=== PATIENT | female | born 1985 | race Caucasian/White ===

== ENCOUNTER 2020-03-24 00:27 | Inpatient (IN) ==
--- NOTE | 2020-03-24 00:41 | Emergency Department Note ---
Impression & Plan Froy, Mood disorder, Sleep deprivation ED Provider Note NAME: ISMAEL VALENZUELA AGE: 34 SEX: F ARRIVES VIA: Walk-In INFORMANT: [Patient][, patient's sister who is at the bedside] ED PROVIDER(S): Lovely Barajas DO CHIEF COMPLAINT: Manic PLAN: Disposition: Admitted to [facility]. voluntarily Condition: Fair MEDICAL DECISION MAKING: This is a 34-year-old female patient who presents to the emergency department sleep deprived and acutely manic. Patient's family has been concerned for over the past 1 month as she has been exhibiting some signs of acute psychosis and froy. Patient has also not been sleeping. They became more concerned tonight when she explained to them that she needed to save someone from killing themselves and they believe that that person was actually her. The patient was fully evaluated here in the emergency department and had laboratory studies done and was felt to be medically cleared. She was given a dose of Ativan to help with her anxiety. She was evaluated by the ED psychiatric residential case manager. She was willing to admit herself voluntarily and was accepted to 3 S. The patient was given an oral dose of Haldol prior to going upstairs. Triage Nursing notes reviewed and agree them. [Additional history obtained from] the patient's sister who was at the bedside [Prior medical records reviewed] Vital Signs: reviewed and remarkable for Intermittent tachycardia and hypertension Differential diagnosis: Mood disorder, thought disorder, suicidal ideation, sleep deprivation ER treatment provided: Oral Ativan Oral Haldol Laboratory studies: [See below] HPI: 34/F arrives for evaluation of suicidal thoughts. This is a 34-year-old female patient who presents to the emergency department in a sleep deprived state and acutely manic. The patient has been exhibiting signs of acute psychosis and froy. There have been some obsessive and compulsive tendencies. She had called 911 stating that she was concerned about a friend being suicidal but in reality it seems that she may have been talking about herself. She states that she is doing everything that she cannot kill herself. She does have a history of depression. She does admit to significant sleep deprivation which makes everything worse. She does admit that she has been talking to Sima on her phone quite a bit. She describes being on a vision quest with her dog. According to her sister, she has been erratically spending money. She bought 60 plants for her porch to protect her from the coronavirus. ROS: See above HPI for pertinent positives & negatives. A total of [10] systems reviewed and were otherwise negative. PAST MEDICAL HISTORY:Anxiety and depression PAST SURGICAL HISTORY:[See Below] FAMILY HISTORY:[See Below] SOCIAL HISTORY:She lives alone and works at [employer]; she does drink alcohol occasionally HOME MEDICATIONS:See list ALLERGIES:None VITALS:[See Below] PHYSICAL EXAMINATION: HEENT: Head - normocephalic and atraumatic Pupils are equal, round, and reactive to light. Extraocular eye muscles are intact, and sclera are anicteric. Nose - moist nasal mucosa without discharge. Mouth - moist buccal mucosa. Oropharynx is nonerythematous and there is no tonsillar exudate or edema noted. Neck: Supple; no cervical lymphadenopathy Heart: Regular rate and rhythm. There is a normal S1 and S2 with no murmurs, clicks, or gallops appreciated. Lungs: Clear to auscultation bilaterally with no wheezes, rales, or rhonchi. Abdomen: Soft, completely nontender, nondistended, with good bowel sounds. There are no palpable pulsatile masses or hepatosplenomegaly. There is no guarding, rigidity, or rebound noted. Extremities: No evidence of cyanosis, clubbing, or edema. There are easily palpable peripheral pulses. Skin: warm and dry with good turgor and no rashes. Psych: The patient is manic. She has a very tangential thought process. She speaks about being on a vision quest. She does laugh inappropriately at times b ut makes good eye contact. ED COURSE: Times/Reassessments: 0045: The patient was evaluated in room 8. A complete history and physical was performed. Laboratory studies were drawn as above 0240: The patient was felt to be medically cleared. She was given sublingual Ativan for her anxiety. This did seem to only helped slightly with her increasing agitation. She was willing to admit herself voluntarily for inpatient psychiatric care. 0300: I reevaluated the patient at this time and tried to de-escalate her some as she was becoming more tearful and anxious. Patient was requesting to rewrite the paperwork with regards to voluntary admission to an inpatient psychiatric facility. Patient was finally willing to sign herself in voluntarily. She did take 5 mg of oral Haldol. She will be admitted to [facility]. 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 Beliefs That Will Affect Care: None Feels Safe at Home: Yes Smoking Status: Never smoker Allergies Allergies Allergy/AdvReac Type Severity Reaction Status Date / Time No Known Allergies Allergy Verified 03/24/20 02:45 Home Meds Home Medications Medication Instructions Recorded Confirmed escitalopram oxalate 20 mg PO DAILY 02/13/20 03/24/20 norgestimate-ethinyl estradiol 1 tab PO DAILY 02/13/20 03/24/20 [Tri Femynor] Results & Data (ED) Vital Signs Vital Signs - 24 hr 03/24/20 00:28 03/24/20 02:20 Temperature 37.1 C Temperature Source Oral Pulse Rate 84 Pulse Rate [Finger] 92 H Respiratory Rate 18 18 Respiratory Effort / Characteristics Non-Labored Spontaneous Non-Labored Spontaneous Respiratory Depth Normal Normal Respiratory Pattern Regular Blood Pressure 133/98 Blood Pressure [Right Arm] 137/92 Blood Pressure Mean 109 Blood Pressure Mean [Right Arm] 107 Blood Pressure Position Sitting Pulse Oximetry 96 95 Oxygen Delivery Method Room Air Room Air Sepsis Recent Fever Within 48 Hours No Sepsis New/Unexplained Change in Mental Status No Sepsis Action Taken by Nursing No Action Required Laboratory Data Result diagrams: 03/24/20 01:44 03/24/20 01:44 Lab Results 03/24/20 03/24/20 03/24/20 Range/Units 01:44 01:44 01:44 WBC 9.44 (4.8-10.8) K/uL RBC 4.51 (4.2-5.4) M/uL Hgb 13.5 (12.0-16.0) g/dL Hct 40.7 (37-47) % MCV 90.2 (80-100) fL MCH 29.9 (25-34) pg MCHC 33.2 (32-36) g/dL RDW Std Deviation 43.7 (36.4-46.3) fL RDW Coeff of Nick 13.3 (11.5-14.5) % Plt Count 356 (130-400) K/uL MPV 9.5 (7.4-10.4) fL Immature Gran % (Auto) 0.2 % Neut % (Auto) 58.1 % Lymph % (Auto) 31.1 % Harper % (Auto) 9.2 % Eos % (Auto) 1.2 % Baso % (Auto) 0.2 % Neut # (Auto) 5.48 (1.4-6.5) K/uL Lymph # (Auto) 2.94 (1.2-3.4) K/uL Harper # (Auto) 0.87 H (0.11-0.59) K/uL Eos # (Auto) 0.11 (0-0.5) K/uL Baso # (Auto) 0.02 (0-0.2) K/uL Immature Gran # (Auto) 0.02 (0.00-0.02) K/uL Sodium 142 (136-145) mmol/L Potassium 3.6 (3.5-5.1) mmol/L Chloride 107 (98-107) mmol/L Carbon Dioxide 27 (21-32) mmol/L Anion Gap 8.0 (3-11) BUN 11 (7-18) mg/dl Creatinine 0.87 (0.6-1.2) mg/dl Est Cr Clr Drug Dosing Not Reportable Est GFR ( Amer) 102.2 Est GFR (Non-Af Amer) 88.1 BUN/Creatinine Ratio 12.8 (10-20) Glucose 118 H (70-99) mg/dl Calcium 8.7 (8.5-10.1) mg/dl Total Bilirubin 0.3 (0.2-1) mg/dl AST 22 (15-37) U/L ALT 45 (12-78) U/L Alkaline Phosphatase 54 (45-117) U/L Total Protein 7.7 (6.4-8.2) gm/dl Albumin 3.4 (3.4-5.0) gm/dl Globulin 4.3 H (2.5-4.0) gm/dl Albumin/Globulin Ratio 0.8 L (0.9-2) TSH 2.570 (0.300-4.500) uIu/ml Urine Color Urine Appearance (Clear) Urine pH (4.5-7.5) Ur Specific Paia (1.000-1.030) Urine Protein (Negative) Urine Glucose (UA) (Negative) Urine Ketones (Negative) Urine Blood (Negative) Urine Nitrite (Negative) Urine Bilirubin (Negative) Urine Urobilinogen (Negative) Ur Leukocyte Esterase (Negative) Urine RBC (0-4) /hpf Urine WBC (0-5) /hpf Ur Epithelial Cells (0-5) /lpf Urine Bacteria (Negative) Urine Mucus (None Prsent) Urine Test (Negative) Salicylates < 1.7 L (2.8-20) mg/dl Urine Opiates Screen (Neg) Ur Methadone, Qual (Neg) Acetaminophen < 2 L (10-30) ug/ml Urine Barbiturates (Neg) Ur Phencyclidine (PCP) (Neg) U Amphetamin/Meth Scrn (Neg) MDMA (Ecstasy) Screen (Neg) U Benzodiazepines Scrn (Neg) Ur Cocaine Metabolite (Neg) U Marijuana (THC) Screen (Neg) Ethyl Alcohol mg/dL (0-3) mg/dl 03/24/20 03/24/20 03/24/20 Range/Units 01:44 02:24 02:24 WBC (4.8-10.8) K/uL RBC (4.2-5.4) M/uL Hgb (12.0-16.0) g/dL Hct (37-47) % MCV (80-100) fL MCH (25-34) pg MCHC (32-36) g/dL RDW Std Deviation (36.4-46.3) fL RDW Coeff of Nick (11.5-14.5) % Plt Count (130-400) K/uL MPV (7.4-10.4) fL Immature Gran % (Auto) % Neut % (Auto) % Lymph % (Auto) % Harper % (Auto) % Eos % (Auto) % Baso % (Auto) % Neut # (Auto) (1.4-6.5) K/uL Lymph # (Auto) (1.2-3.4) K/uL Harper # (Auto) (0.11-0.59) K/uL Eos # (Auto) (0-0.5) K/uL Baso # (Auto) (0-0.2) K/uL Immature Gran # (Auto) (0.00-0.02) K/uL Sodium (136-145) mmol/L Potassium (3.5-5.1) mmol/L Chloride (98-107) mmol/L Carbon Dioxide (21-32) mmol/L Anion Gap (3-11) BUN (7-18) mg/dl Creatinine (0.6-1.2) mg/dl Est Cr Clr Drug Dosing Est GFR ( Amer) Est GFR (Non-Af Amer) BUN/Creatinine Ratio (10-20) Glucose (70-99) mg/dl Calcium (8.5-10.1) mg/dl Total Bilirubin (0.2-1) mg/dl AST (15-37) U/L ALT (12-78) U/L Alkaline Phosphatase (45-117) U/L Total Protein (6.4-8.2) gm/dl Albumin (3.4-5.0) gm/dl Globulin (2.5-4.0) gm/dl Albumin/Globulin Ratio (0.9-2) TSH (0.300-4.500) uIu/ml Urine Color Urine Appearance (Clear) Urine pH (4.5-7.5) Ur Specific Paia (1.000-1.030) Urine Protein (Negative) Urine Glucose (UA) (Negative) Urine Ketones (Negative) Urine Blood (Negative) Urine Nitrite (Negative) Urine Bilirubin (Negative) Urine Urobilinogen (Negative) Ur Leukocyte Esterase (Negative) Urine RBC (0-4) /hpf Urine WBC (0-5) /hpf Ur Epithelial Cells (0-5) /lpf Urine Bacteria (Negative) Urine Mucus (None Prsent) Urine Test Negative (Negative) Salicylates (2.8-20) mg/dl Urine Opiates Screen Neg (Neg) Ur Methadone, Qual Neg (Neg) Acetaminophen (10-30) ug/ml Urine Barbiturates Neg (Neg) Ur Phencyclidine (PCP) Neg (Neg) U Amphetamin/Meth Scrn Neg (Neg) MDMA (Ecstasy) Screen Neg (Neg) U Benzodiazepines Scrn Neg (Neg) Ur Cocaine Metabolite Neg (Neg) U Marijuana (THC) Screen Neg (Neg) Ethyl Alcohol mg/dL < 3.0 (0-3) mg/dl 03/24/20 Range/Units 02:24 WBC (4.8-10.8) K/uL RBC (4.2-5.4) M/uL Hgb (12.0-16.0) g/dL Hct (37-47) % MCV (80-100) fL MCH (25-34) pg MCHC (32-36) g/dL RDW Std Deviation (36.4-46.3) fL RDW Coeff of Nick (11.5-14.5) % Plt Count (130-400) K/uL MPV (7.4-10.4) fL Immature Gran % (Auto) % Neut % (Auto) % Lymph % (Auto) % Harper % (Auto) % Eos % (Auto) % Baso % (Auto) % Neut # (Auto) (1.4-6.5) K/uL Lymph # (Auto) (1.2-3.4) K/uL Harper # (Auto) (0.11-0.59) K/uL Eos # (Auto) (0-0.5) K/uL Baso # (Auto) (0-0.2) K/uL Immature Gran # (Auto) (0.00-0.02) K/uL Sodium (136-145) mmol/L Potassium (3.5-5.1) mmol/L Chloride (98-107) mmol/L Carbon Dioxide (21-32) mmol/L Anion Gap (3-11) BUN (7-18) mg/dl Creatinine (0.6-1.2) mg/dl Est Cr Clr Drug Dosing Est GFR ( Amer) Est GFR (Non-Af Amer) BUN/Creatinine Ratio (10-20) Glucose (70-99) mg/dl Calcium (8.5-10.1) mg/dl Total Bilirubin (0.2-1) mg/dl AST (15-37) U/L ALT (12-78) U/L Alkaline Phosphatase (45-117) U/L Total Protein (6.4-8.2) gm/dl Albumin (3.4-5.0) gm/dl Globulin (2.5-4.0) gm/dl Albumin/Globulin Ratio (0.9-2) TSH (0.300-4.500) uIu/ml Urine Color Yellow Urine Appearance Cloudy A (Clear) Urine pH 6.5 (4.5-7.5) Ur Specific Paia <= 1.005 (1.000-1.030) Urine Protein Negative (Negative) Urine Glucose (UA) Negative (Negative) Urine Ketones Negative (Negative) Urine Blood 3+ H (Negative) Urine Nitrite Negative (Negative) Urine Bilirubin Negative (Negative) Urine Urobilinogen Negative (Negative) Ur Leukocyte Esterase Negative (Negative) Urine RBC 10-30 H (0-4) /hpf Urine WBC 10-30 H (0-5) /hpf Ur Epithelial Cells >30 H (0-5) /lpf Urine Bacteria 1+ H (Negative) Urine Mucus Present A (None Prsent) Urine Test (Negative) Salicylates (2.8-20) mg/dl Urine Opiates Screen (Neg) Ur Methadone, Qual (Neg) Acetaminophen (10-30) ug/ml Urine Barbiturates (Neg) Ur Phencyclidine (PCP) (Neg) U Amphetamin/Meth Scrn (Neg) MDMA (Ecstasy) Screen (Neg) U Benzodiazepines Scrn (Neg) Ur Cocaine Metabolite (Neg) U Marijuana (THC) Screen (Neg) Ethyl Alcohol mg/dL (0-3) mg/dl Administered Medications Acetaminophen (Tylenol) 650 mg PO Q4H PRN PRN Reason: Headache or Minor Fever Stop: 04/23/20 04:48 Last Admin: 03/24/20 14:28 Dose: 650 mg Documented by: [id number] Hydroxyzine HCl (Vistaril) 25 mg PO Q4H PRN PRN Reason: Anxiety Stop: 04/23/20 04:48 Last Admin: 03/24/20 15:47 Dose: 25 mg Documented by: [id number] Lorazepam (Ativan) 1 mg PO Q6H PRN PRN Reason: Anxiety Stop: 04/23/20 04:50 Last Admin: 03/24/20 12:59 Dose: 1 mg Documented by: [id number] Discontinued Medications Escitalopram Oxalate (Lexapro Tab) 10 mg PO QAM PONCHO Stop: 04/23/20 14:59 Last Admin: 03/24/20 15:16 Dose: 10 mg Documented by: [id number] Haloperidol Lactate (Haldol Lactate) 5 mg PO NOW STA Stop: 03/24/20 05:40 Last Admin: 03/24/20 05:58 Dose: 5 mg Documented by: [id number] Lorazepam (Ativan) 1 mg PO NOW STA Stop: 03/24/20 02:46 Last Admin: 03/24/20 02:50 Dose: 1 mg Documented by: [id number] Risperidone (Risperdal) 0.5 mg PO NOW STA Stop: 03/24/20 14:11 Last Admin: 03/24/20 14:32 Dose: 0.5 mg Documented by: [id number] Discharge Plan Visit Data *Final* Discharge Date/Time: 03/24/20 06:04 Chief Complaint: Mental Health Evaluation Stated Complaint: [facility] ED Provider: Lovely Barajas Discharge Problem: Froy, Mood disorder, Sleep deprivation Patient Disposition: Admitted As Inpatient Discharge Instructions Interventions: ED Discharge Assessment Last Done: 03/24/20 06:04
[2020-03-24 02:01] LABS: Basophils # (auto) 0.02 K/uL (0-0.2); Basophils % (auto) 0.2 %; Eosinophils # (auto) 0.11 K/uL (0-0.5); Eosinophils % (auto) 1.2 %; Hematocrit (blood only) 40.7 % (37-47); Hemoglobin 13.5 g/dL (12.0-16.0); Immature Granulocytes # (auto) 0.02 K/uL (0.00-0.02); Immature Granulocytes % (auto) 0.2 %; Lymphocytes # (auto) 2.94 K/uL (1.2-3.4); Lymphocytes % (auto) 31.1 %; Mean Corpuscular Hemoglobin 29.9 pg (25-34); Mean Corpuscular Hgb Conc 33.2 g/dL (32-36); Mean Corpuscular Volume 90.2 fL (80-100); Mean Platelet Volume 9.5 fL (7.4-10.4); Monocytes # (auto) 0.87 K/uL (0.11-0.59); Monocytes % (auto) 9.2 %; Neutrophils # (auto) 5.48 K/uL (1.4-6.5); Neutrophils % (auto) 58.1 %; Platelet Count 356 K/uL (130-400); RDW Coefficient of Variation 13.3 % (11.5-14.5); RDW Standard Deviation 43.7 fL (36.4-46.3); Red Blood Count 4.51 M/uL (4.2-5.4); White Blood Count 9.44 K/uL (4.8-10.8)
[2020-03-24 02:21] LABS: Alanine Aminotransferase 45 U/L (12-78); Albumin Level 3.4 gm/dl (3.4-5.0); Aspartate Aminotransferase 22 U/L (15-37); BUN Creatinine Ratio 12.8 (10-20); Blood Urea Nitrogen 11 mg/dl (7-18); Calcium 8.7 mg/dl (8.5-10.1); Carbon Dioxide 27 mmol/L (21-32); Chloride 107 mmol/L (98-107); Est GFR (African American) 102.2; Est GFR (Non-African American) 88.1; Glucose 118 mg/dl (70-99); Potassium 3.6 mmol/L (3.5-5.1); Sodium 142 mmol/L (136-145)
[2020-03-24 02:30] LABS: Acetaminophen < 2 ug/ml (10-30); Salicylate < 1.7 mg/dl (2.8-20)
[2020-03-24 02:31] LABS: Albumin Globulin Ratio 0.8 (0.9-2); Alkaline Phosphatase 54 U/L (45-117); Bilirubin,Total 0.3 mg/dl (0.2-1); Globulin 4.3 gm/dl (2.5-4.0); Total Protein 7.7 gm/dl (6.4-8.2)
[2020-03-24 02:33] LABS: Pregnancy Test, Urine Negative (Negative)
[2020-03-24 02:44] LABS: Appearance Urine Cloudy (Clear); Bilirubin Urine Negative (Negative); Blood Urine 3+ (Negative); Color Urine Yellow; Glucose Urine UA Negative (Negative); Ketones Urine Negative (Negative); Leukocyte Esterase Urine Negative (Negative); Nitrite Urine Negative (Negative); Protein Urine Negative (Negative); Specific Gravity Urine <= 1.005 (1.000-1.030); Urobilinogen Urine Negative (Negative); pH Urine 6.5 (4.5-7.5)
[2020-03-24 02:45] LABS: Epithelial Cell Urine >30 /lpf (0-5)
[2020-03-24] MEDS ORDERED: LORazepam 1 MG TAB PO STA (02:45)
[2020-03-24 02:46] LABS: Bacteria Urine 1+ (Negative); Mucus Urine Present (None Prsent)
[2020-03-24 02:58] LABS: Amphetamines+Metham, Urine Neg (Neg); Barbiturates, Urine Neg (Neg); Benzodiazepine, Urine Neg (Neg); Cocaine, Urine Neg (Neg); MDMA (Ecstacy), Urine Neg (Neg); Methadone, Urine Neg (Neg); Opiate, Urine Neg (Neg); Phencyclidine, Urine Neg (Neg)
[2020-03-24] MEDS ORDERED: ACETAMINOPHEN 325 MG TAB PO PRN (04:49)
[2020-03-24] MEDS ORDERED: SODIUM CHLORIDE 0.65% NA SOLN 45 ML (OCEAN) PRN (04:49)
[2020-03-24] MEDS ORDERED: ALUMINUM/MAGNESIUM SUSP 30 ML UDC PO PRN (04:49)
[2020-03-24] MEDS ORDERED: BISMUTH SUBSALICYLATE PER ML OMNICELL CHARGE PO PRN (04:49)
[2020-03-24] MEDS ORDERED: MAGNESIUM HYDROXIDE SUSP 30 ML UDC PO PRN (04:49)
[2020-03-24] MEDS ORDERED: HALOPERIDOL 5 MG/2.5 ML UDP PO STA (05:39)
[2020-03-24] MEDS: LORazepam 1 MG TAB PO PRN (12:59)
[2020-03-24] MEDS ORDERED: risperiDONE 0.5 MG TABLET PO STA (14:10)
[2020-03-24] MEDS ORDERED: ESCITALOPRAM OXALATE 10 MG TAB PO SCH (15:00)
--- NOTE | 2020-03-24 15:27 | History & Physical ---
Date of Service March 24, 2020 Impression / Recommendations Impression This 34-year-old woman was brought to the emergency room last night by her sister because of recent changes in the patient's behaviors. Identify concerns include the fact that, for approximately the past month, the patient has been progressively more emotionally labile, more irritable, more disorganized, and, recently, is making statements that suggest that she is delusional. 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 She has begun insisting that she had learned that someone, yet to be identified, was in mortal danger and that she needed to determine who that person might be. Most recently, she reported to the family that she had determined that the person in mortal danger was herself, and the nature of the danger was risk of suicideand, within that context, began taking various steps to mitigate against her perceived risk of suicide. Although her current symptoms do not entirely classic for bipolar disorder, manic phase, and although she reportedly has never been diagnosed as bipolar in the past, she currently has had several weeks of irritable mood, decreased sleep, increased energy (working throughout the night at her office), and, possibly developing an erotomanic fixation on 1 of her coworkers. The patient, herself, says that she feels that she became "manic" (her word) when her dose of Lexapro was increased from 10 mg to a dose of 20 mg. Complicating the clinical picture is a pretty clear history of OCD and, possibly, OCPD. She acknowledges that she is obsessed with the idea that someone might break into her house or that she might leave an appliance on, and so she has to regularly check doors, windows, and burners in her home. She also indicates that she has to check a specific number of times by shaking or rattling the doorknobs to confirm that the doors are locked. Further, she notes that it is not unusual for her to need to turn around on her way to work or elsewhere in order to "triple check" that she locked her door when she left the house, even though she realizes that she has. Within this context, the patient acknowledges that she has alien, intrusive, ego-dystonic thoughts, but says that she is not disposed to discuss them at the present time. The patient is very emotionally labile and bumptious and her approach to staff, and she repeatedly insists that Lexapro 10 mg daily works very well for her and that she would be willing to try other medications as long as she can continue to take Lexapro 10 mg. She has concerns about weight gain, and tells us that she is reluctant to consider lithium carbonate. She did agree to risperidone 0.5 mg twice a day as a mood stabilizer, and, of course, the hope will be that we can titrate this dose, or convince her to reconsider taking lithium. The patient's sister, who is on staff at the hospital ([employer]) is very supportive and has offered to help in any way she can. (1) Altered mood associated with froy: 03/24/20 -The patient has been admitted to the [facility] behavioral health unit and is being closely observed. When appropriate, she will be encouraged to participate in group and activity therapies. We will also arrange for family interventions, particularly given the patient's reported closeness with her sister and her parents. -The patient's symptoms are not fully classic for froy, and she reportedly has never had a previous episode of manic-like symptoms. Currently, she number of her symptoms are consistent with a manic episode. She is quite irritable, emotionally labile, reportedly has been working in her office throughout the night on certain nights, has been spending money on apparently useless or unneeded objects, and she has described her thoughts as being "confused." Subjectively, the patient refers to herself as being depressed and what we may be seeing as a "mixed state." -There is also a past history of recurrent episodes of depression that are characterized by depressed mood, pitch gatherer awakening, crying spells, anergia, apathy, poor concentration, and psychosocial withdrawal. -We are continuing Lexapro at a lower dose (10 mg a day from 20 mg a day) because the patient, in addition to being irritable, appears depressedand because she insists that Lexapro has helped under similar conditions in the past. However, we will proceed with caution because it is possible that Lexapro, even at lower dosages, may be exacerbating her emotional lability. -We have begun risperidone 0.5 mg twice a day. Material risks and anticipated benefits of risperidone were reviewed with the patient and she indicated understanding. She has some reluctance because of her concern about weight gain, and we assured her that we would monitor for this. Present on Admission?: No (2) Anxiety: 03/24/20 -Patient describes symptoms of generalized anxiety that date back for many years. These include a sense that things are "just about to go out of control." -The patient also would meet criteria for obsessive-compulsive disorder as part of her anxiety. Her symptoms primarily have to do with a compulsion to repeatedly check objects such as door locks, windows locks, and appliances. These compulsions are linked to obsessive worries that cause extreme anxiety if not gratified. -The patient says that she feels that Lexapro has helped with her anxiety and with her obsessive worrying, checking behaviors. However, she says that Lexapro 10 mg a day works well, while Lexapro 20 mg a day has caused some of the symptoms we are currently observing. Present on Admission?: Yes (3) Insomnia: 03/24 -The patient acknowledges that she has not been sleeping well. She describes what may be a 2-hour sleep onset delay, followed by regular intermittent insomnia, and then pitch gatherer awakening. She indicates that she has not lost her desire for sleep but, instead, refers to herself as having an inability to sleep. -The patient also indicates that her difficulty sleeping is independent of her mood, and that she has trouble sleeping even when her mood feels normal. -We will begin lorazepam 1 mg at bedtime as a standing dose order for sleep. Present on Admission?: Yes Inventory Assets Strengths: Intelligence. Highly supportive family. Positive work history. Accomplished. 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 Needs: Mood stabilization. Resolution of psychosis. Risk Factors Assessment Psychotic illness. Male: No : Yes Do You Have Access To A Gun?: No Health Problems: No Mental Health Diagnoses: Yes Substance Use Disorders: No Previous Attempt: No Family History of Suicide: No Previous Psychiatric Hospitalization: No Hopelessness: No Smoker: No Protective Factors Assessment Voodoo Beliefs: No : No Responsible for Young Children: No Employed: Yes ([employer]) Stable Relationships: Yes Supportive Family: Yes Good Rapport with Provider: Yes Absence of Any Risk Factors Above: No Psychiatric History Identifying Data ISMAEL VALENZUELA is a 34-year-old F who currently lives in [] [alone] with [], has a history of [], and was admitted on 03/24/20 04:49 on a [201 voluntary] [302 involuntary] commitment for []. Chief Complaint "What day is it? I just want to go home". History of Present Illness The patient is a 34-year-old woman with a known history of psychiatric illness who, over the years, has apparently carried various diagnoses including depression, obsessive-compulsive disorder, obsessive-compulsive personality disorder, and generalized anxiety disorder. She was brought to the [facility] emergency department last night by her sister, and attending physician on the staff at [facility], because the patient's behavior was becoming progressively more irritable, emotionally labile, and disorganized. According to the patient's sister the patient's family (sister and parents) began to notice concerning behaviors approximately a month ago. These behaviors included making multiple and apparently random purchases, purchasing a very large number of plants for her front porch that she reportedly said that she believed would protect her against COVID-19, and, according to her sister, acquiring a large number of objects to the degree that her house now appears cluttered. 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 The family was aware that the patient was not sleeping and the patient, herself, confirms that she has not been sleeping. Further, she reportedly had been sending irrational texts to various individuals who were bringing these irrational text to the attention of her family and suggesting that something appeared to be wrong. The patient tells us that she had become convinced that someone whom she cared about was in mortal danger, and she became focused on determining who that individual might be. Shortly before she was brought to medical attention for the current admission she revealed that she had decided that the person who was in mortal danger was herself, and that the risk was suicide. The patient reportedly responded by taking various steps to mitigate against the risk of suicide. The patient's family also noted that the patient was frequently asking repetitive questions, such as "what day is it," and "w when was 18 March?" During her admission assessment, the patient stared at a wall clock and repeatedly asked, "what time is it? Tell me what time it is!" When asked if she could tell time on an analog clock, she laughed and said, "yes. What time is it?" When she was asked to look at the clock and tell us, she said "could it be 1:45? Is it 1:45 AM or p.m.? How can I tell!" The patient also began the encounter by asking me if today was "the ," in reference to the date, and it was confirmed that, in fact, today is March 24. However, a number of times during the encounter, she ask "what day is it? What day of the week is it? What is the date?" She also asked several times when 18 March fell this year, and appeared distressed when she was told that it was last Friday. Complicating the clinical picture is the reported fact that the patient has in the past carried diagnoses of obsessive-compulsive personality disorder, obsessive-compulsive disorder, anxiety, as well as depression. According to the family, the patient's condition worsened approximately a week ago, around 18 March. The patient's sister noted that within the past week or so the patient had been talking about a certain male coworker in a manner that suggested that she, the patient, possibly had developed an erotomanic delusional belief regarding this individual --although the patient's sister could not be certain that this was the case. Also possibly contributing is the report that the patient's dose of Lexapro had been increased from Lexapro 10 mg a day to a dose of Lexapro 20 mg a day approximately 2 weeks ago. The patient, herself, says that, in retrospect, this may have been a mistake because while Lexapro 10 mg daily made her feel "better," Lexapro 20 mg a day made her feel "manic." Past Psychiatric History Previous Psych History: The patient reportedly has been followed by several psychiatrist in the past, and also has had several different psychotherapists. She also currently is obtaining psychiatric medications from her primary care physician. Current Psychiatric Diagnosis: OCPD, OCD, Anxiety, Depression Previous Psych Admissions: None Do You Have Access To A Gun?: No History of Previous Suicide Attempt: No Describe Attempts in the Past: No prior attempts Past Medication Trials: Both the patient and her sister confirmed that she has been on multiple different psychiatric medications over the years. These medications included, but apparently were not limited to, Prozac, Zoloft, Paxil, Effexor, Lexapro, aripiprazole, Vraylar, bupropion, Viibryd, but not, to the best of her recollection, lithium, olanzapine, risperidone, Anafranil, or fluvoxamine. Of these medications, she feels that Lexapro has been the most effective at 10 mg daily. She notes that she is very reluctant to take medications that may cause weight gain.. Past Head Trauma/Neuro History History of Concussion/Seizure: No Allergies Allergy/AdvReac Type Severity Reaction Status Date / Time No Known Allergies Allergy Verified 03/24/20 02:45 Home Medications Home Medications Medication Instructions Recorded Confirmed Type escitalopram oxalate 20 mg PO DAILY 02/13/20 03/24/20 History norgestimate-ethinyl estradiol 1 tab PO DAILY 02/13/20 03/24/20 History [Tri Femynor] Family History Family History of: Doesn't Know Family Mental Health History Comment: mother with anxiety (maybe sister and father too) Alcohol History Hx of Alcohol Use Over the Past 12 Months: Yes (occasional alcohol use) AUDIT Total Score: 1 Smoking Use Have You Smoked or Used Tobacco Products in the Last 30 Days: No Smoking Status: Never smoker Substance History Hx of Prescription Med Misuse Over the Past 12 Months: No Hx of Over the Counter Med Misuse Over the Past 12 Months: No Hx of Inhalent Misuse Over the Past 12 Months: No Hx of Organic Substance Use Over the Past 12 Months: No Hx of Illegal Substances/Street Drug Use Over Past 12 Months: No Problems as a Result of Past Substance Use: None Identified Personal History Living Arrangements: Home Highest Grade Completed: College and Graduate School Highest Grade Completed Comment: DAVID from [employer] Marital Status: Single Number Of Children: 0 Beliefs That Will Affect Care: None Hx Legal Problems: No Hx Traumatic Life Events: No (Per patient's sister) Patient History Medical History Anxiety Surgical History No significant past surgical history Social History Preferred Language: Romansh Communication Ability: Effective Fixed Income Director Required: No Beliefs That Will Affect Care: None Feels Safe at Home: Yes Smoking Status: Never smoker Physical Exam Psychiatric: Orientation: alert At one point the patient asked me if today's date was "March 24," but then asked repeatedly in sequence with what the correct date was. She is able to tell us that it is 2009 and she recognizes that the month is March. She is also oriented to person, place and situation. Apperance: appropriately dressed and appropriately groomed Eye Contact: + fair eye contact Motor Behavior: + psychomotor agitation The patient speech is at times pressured within the context of emotional lability and agitation. Affect: + labile affect and + irritable affect The patient frequently burst into tears, calls out that she is "trapped in hell," and shots, "I just want to go home! I want to go home and see my cat! Why cannot I go home?" When asked about mood, the patient states: "I am fine. I just want to go home." She also describes her self is feeling "upset" and distraught." Thought Process: + flight of ideas Thought Content: + delusions (The patient states that she is being monitored and that the staff see her wherever she is on the unit through cameras and microphones. When the fluorescent lights in the office blanked she wondered if her picture was being taken.), + ideas of reference and + persecution Suicidal Thoughts: denies suicidal thoughts Homicidal Thoughts: denies homicidal thoughts Hallucinations: no auditory hallucinations and no visual hallucinations Cognition: language grossly intact The patient is currently a poor historian and seems confused about dates, times and sequences. Estimated Intelligence: + above average estimated intelligence Insight: + poor insight Judgement: + poor judgement Vital Signs (Past 24 Hours): Last Vital Signs Temp 37.1 C 03/24/20 00:28 Pulse 94 H 03/24/20 06:43 Resp 18 03/24/20 06:43 BP 136/92 03/24/20 06:43 Pulse Ox 95 03/24/20 06:04 Results & Data ([facility]) Laboratory Results Laboratory Results - last 24 hr 03/24/20 03/24/20 03/24/20 01:44 01:44 01:44 WBC 9.44 RBC 4.51 Hgb 13.5 Hct 40.7 MCV 90.2 MCH 29.9 MCHC 33.2 RDW Std Deviation 43.7 RDW Coeff of Nick 13.3 Plt Count 356 MPV 9.5 Immature Gran % (Auto) 0.2 Neut % (Auto) 58.1 Lymph % (Auto) 31.1 Weld % (Auto) 9.2 Eos % (Auto) 1.2 Baso % (Auto) 0.2 Neut # (Auto) 5.48 Lymph # (Auto) 2.94 Weld # (Auto) 0.87 H Eos # (Auto) 0.11 Baso # (Auto) 0.02 Immature Gran # (Auto) 0.02 Sodium 142 Potassium 3.6 Chloride 107 Carbon Dioxide 27 Anion Gap 8.0 BUN 11 Creatinine 0.87 Est Cr Clr Drug Dosing Not Reportable Est GFR ( Amer) 102.2 Est GFR (Non-Af Amer) 88.1 BUN/Creatinine Ratio 12.8 Glucose 118 H Calcium 8.7 Total Bilirubin 0.3 AST 22 ALT 45 Alkaline Phosphatase 54 Total Protein 7.7 Albumin 3.4 Globulin 4.3 H Albumin/Globulin Ratio 0.8 L TSH 2.570 Urine Color Urine Appearance Urine pH Ur Specific [place] Urine Protein Urine Glucose (UA) Urine Ketones Urine Blood Urine Nitrite Urine Bilirubin Urine Urobilinogen Ur Leukocyte Esterase Urine RBC Urine WBC Ur Epithelial Cells Urine Bacteria Urine Mucus Urine Test Salicylates < 1.7 L Urine Opiates Screen Ur Methadone, Qual Acetaminophen < 2 L Urine Barbiturates Ur Phencyclidine (PCP) U Amphetamin/Meth Scrn MDMA (Ecstasy) Screen U Benzodiazepines Scrn Ur Cocaine Metabolite U Marijuana (THC) Screen Ethyl Alcohol mg/dL 03/24/20 03/24/20 03/24/20 01:44 02:24 02:24 WBC RBC Hgb Hct MCV MCH MCHC RDW Std Deviation RDW Coeff of Nick Plt Count MPV Immature Gran % (Auto) Neut % (Auto) Lymph % (Auto) Weld % (Auto) Eos % (Auto) Baso % (Auto) Neut # (Auto) Lymph # (Auto) Weld # (Auto) Eos # (Auto) Baso # (Auto) Immature Gran # (Auto) Sodium Potassium Chloride Carbon Dioxide Anion Gap BUN Creatinine Est Cr Clr Drug Dosing Est GFR ( Amer) Est GFR (Non-Af Amer) BUN/Creatinine Ratio Glucose Calcium Total Bilirubin AST ALT Alkaline Phosphatase Total Protein Albumin Globulin Albumin/Globulin Ratio TSH Urine Color Urine Appearance Urine pH Ur Specific [place] Urine Protein Urine Glucose (UA) Urine Ketones Urine Blood Urine Nitrite Urine Bilirubin Urine Urobilinogen Ur Leukocyte Esterase Urine RBC Urine WBC Ur Epithelial Cells Urine Bacteria Urine Mucus Urine Test Negative Salicylates Urine Opiates Screen Neg Ur Methadone, Qual Neg Acetaminophen Urine Barbiturates Neg Ur Phencyclidine (PCP) Neg U Amphetamin/Meth Scrn Neg MDMA (Ecstasy) Screen Neg U Benzodiazepines Scrn Neg Ur Cocaine Metabolite Neg U Marijuana (THC) Screen Neg Ethyl Alcohol mg/dL < 3.0 03/24/20 02:24 WBC RBC Hgb Hct MCV MCH MCHC RDW Std Deviation RDW Coeff of Nick Plt Count MPV Immature Gran % (Auto) Neut % (Auto) Lymph % (Auto) Weld % (Auto) Eos % (Auto) Baso % (Auto) Neut # (Auto) Lymph # (Auto) Weld # (Auto) Eos # (Auto) Baso # (Auto) Immature Gran # (Auto) Sodium Potassium Chloride Carbon Dioxide Anion Gap BUN Creatinine Est Cr Clr Drug Dosing Est GFR ( Amer) Est GFR (Non-Af Amer) BUN/Creatinine Ratio Glucose Calcium Total Bilirubin AST ALT Alkaline Phosphatase Total Protein Albumin Globulin Albumin/Globulin Ratio TSH Urine Color Yellow Urine Appearance Cloudy A Urine pH 6.5 Ur Specific [place] <= 1.005 Urine Protein Negative Urine Glucose (UA) Negative Urine Ketones Negative Urine Blood 3+ H Urine Nitrite Negative Urine Bilirubin Negative Urine Urobilinogen Negative Ur Leukocyte Esterase Negative Urine RBC 10-30 H Urine WBC 10-30 H Ur Epithelial Cells >30 H Urine Bacteria 1+ H Urine Mucus Present A Urine Test Salicylates Urine Opiates Screen Ur Methadone, Qual Acetaminophen Urine Barbiturates Ur Phencyclidine (PCP) U Amphetamin/Meth Scrn MDMA (Ecstasy) Screen U Benzodiazepines Scrn Ur Cocaine Metabolite U Marijuana (THC) Screen Ethyl Alcohol mg/dL Current Inpatient Medications Current Inpatient Medications: Current Inpatient Medications Acetaminophen (Tylenol) 650 mg PO Q4H PRN PRN Reason: Headache or Minor Fever Stop: 04/23/20 04:48 Last Admin: 03/24/20 14:28 Dose: 650 mg Documented by: Al Hydrox/Mg Hydrox/Simethicone (Maalox) 30 ml PO Q4H PRN PRN Reason: GI Upset Stop: 04/23/20 04:48 Bismuth Subsalicylate (Kaopectate) 15 ml PO PRN PRN PRN Reason: Loose Stool Stop: 04/23/20 04:48 Escitalopram Oxalate (Lexapro Tab) 10 mg PO QAM PONCHO Stop: 04/23/20 14:59 Last Admin: 03/24/20 15:16 Dose: 10 mg Documented by: Hydroxyzine HCl (Vistaril) 50 mg PO HSZ PRN PRN Reason: Insomnia Stop: 04/23/20 04:48 Hydroxyzine HCl (Vistaril) 25 mg PO Q4H PRN PRN Reason: Anxiety Stop: 04/23/20 04:48 Lorazepam (Ativan) 1 mg PO Q6H PRN PRN Reason: Anxiety Stop: 04/23/20 04:50 Last Admin: 03/24/20 12:59 Dose: 1 mg Documented by: Lorazepam (Ativan) 1 mg PO HS PONCHO Stop: 04/23/20 21:59 Magnesium Hydroxide (Milk Of Magnesia) 30 ml PO DAILY PRN PRN Reason: Constipation Stop: 04/23/20 04:48 Risperidone (Risperdal) 0.5 mg PO BID PONCHO Stop: 04/23/20 20:59 Sodium Chloride ([place] Nasal) 1 - 2 sprays NA PRN PRN PRN Reason: Nasal Dryness/Congestion Stop: 04/23/20 04:48
[2020-03-24] MEDS ORDERED: QUETIAPINE FUMARATE 300 MG TABCR PO STA ×2 (17:13→17:15)
[2020-03-24] MEDS ORDERED: QUETIAPINE FUMARATE 150 MG TABCR PO STA (17:29)
[2020-03-24] MEDS ORDERED: risperiDONE 0.5 MG TABLET PO SCH (21:00)
[2020-03-24] MEDS ORDERED: LORazepam 1 MG TAB PO SCH (22:00)
--- NOTE | 2020-03-25 12:40 | Psychiatric Progress Note ---
Date of Service March 25, 2020 Impression / Recommendations Impression This 34-year-old woman was brought to the emergency room the night of 03/23/20 by her sister because of recent changes in the patient's behaviors. Identified concerns include the fact that, for approximately the past month, the patient has been progressively more emotionally labile, more irritable, more disorganized, and, recently, is making statements that suggest that she is delusional. 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 She has begun insisting that she had learned that someone, yet to be identified, was in mortal danger and that she needed to determine who that person might be. Most recently, she reported to the family that she had determined that the person in mortal danger was herself, and the nature of the danger was risk of suicideand, within that context, began taking various steps to mitigate against her perceived risk of suicide. Although her current symptoms do not entirely classic for bipolar disorder, manic phase, and although she reportedly has never been diagnosed as bipolar in the past, she currently has had several weeks of irritable mood, decreased sleep, increased energy (working throughout the night at her office), and, possibly developing an erotomanic fixation on 1 of her coworkers. The patient, herself, says that she feels that she became "manic" (her word) when her dose of Lexapro was increased from 10 mg to a dose of 20 mg. Complicating the clinical picture is a pretty clear history of OCD and, possibly, OCPD. She acknowledges that she is obsessed with the idea that someone might break into her house or that she might leave an appliance on, and so she has to regularly check doors, windows, and burners in her home. She also indicates that she has to check a specific number of times by shaking or rattling the doorknobs to confirm that the doors are locked. Further, she notes that it is not unusual for her to need to turn around on her way to work or elsewhere in order to "triple check" that she locked her door when she left the house, even though she realizes that she has. Within this context, the patient acknowledges that she has alien, intrusive, ego-dystonic thoughts, but says that she is not disposed to discuss them at the present time. The patient is very emotionally labile and bumptious and her approach to staff, and she repeatedly insists that Lexapro 10 mg daily works very well for her and that she would be willing to try other medications as long as she can continue to take Lexapro 10 mg. She has concerns about weight gain, and tells us that she is reluctant to consider lithium carbonate. She did agree to risperidone 0.5 mg twice a day as a mood stabilizer, and, of course, the hope will be that we can titrate this dose, or convince her to reconsider taking lithium. However the patient after one dose of risperdal 0.5mg refused further dosing and was consented to Seroquel XR 300mg. The patient's sister, who is on staff at the hospital ([employer]) is very supportive and has offered to help in any way she can. (1) Altered mood associated with froy: 03/24/20 -The patient has been admitted to the [facility] and is being closely observed. When appropriate, she will be encouraged to participate in group and activity therapies. We will also arrange for family interventions, particularly given the patient's reported closeness with her sister and her parents. -The patient's symptoms are not fully classic for froy, and she reportedly has never had a previous episode of manic-like symptoms. Currently, she number of her symptoms are consistent with a manic episode. 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 -We are continuing Lexapro at a lower dose (10 mg a day from 20 mg a day) because the patient, in addition to being irritable, appears depressedand because she insists that Lexapro has helped under similar conditions in the past. However, we will proceed with caution because it is possible that Lexapro, even at lower dosages, may be exacerbating her emotional lability. -We have begun risperidone 0.5 mg twice a day. Material risks and anticipated benefits of risperidone were reviewed with the patient and she indicated understanding. She has some reluctance because of her concern about weight gain, and we assured her that we would monitor for this. (of note after this pt refused risperdal and Dr Neal ordered seroquel XR 300mg/hs) 03/25/20 - pt was able to sleep with combination of one dose of Risperdal 0.5mg total of 75mg vistaril and total of 2mg ativan slept overnight (seroquel XR 300mg held due to patient sleeping) TOday she still has some loose associations of this provider being like her friend as reasons to immediately trust, and some possibly delusional thoughts about , she seems more subdued, calm and able to participate. Discussed seroquel XR plan for this evening and rationale and r/b/se/a and patient is accepting. These are all good prognostic signs, however I will delay rendering a full opioin on her 72hour notice as further observation is needed and ongoing improvements in reduction of psychosis, ongoing non-labile mood, consistent sleep are all important for ability to be safe in the community. Further patient needs to establish clear aftercare prior to discharge as well. She seems accepting of this today. Continue Serqouel XR 300mg first dose will be tonight, remove scheduled hs ativan as I do beleive seroquel will be sedating enough on it's own now that she is not as elevated/agitated as she was 03/24, and she has hs vistaril prn and ativan prn if she is not resting. will need to order fasting cholesterol and blood sugar (2) Anxiety: 03/24/20 -Patient describes symptoms of generalized anxiety that date back for many years. These include a sense that things are "just about to go out of control." -The patient also would meet criteria for obsessive-compulsive disorder as part of her anxiety. Her symptoms primarily have to do with a compulsion to repeatedly check objects such as door locks, windows locks, and appliances. These compulsions are linked to obsessive worries that cause extreme anxiety if not gratified. -The patient says that she feels that Lexapro has helped with her anxiety and with her obsessive worrying, checking behaviors. However, she says that Lexapro 10 mg a day works well, while Lexapro 20 mg a day has caused some of the symptoms we are currently observing. 03/25/20 - agree with holding lexapro, seroquel may provide some off label benefits for anxiety, and in future consider buspar as less provocative agent for anxiety if not already trialed. (3) Insomnia: 03/24 -The patient acknowledges that she has not been sleeping well. She describes what may be a 2-hour sleep onset delay, followed by regular intermittent insomni a, and then municipal services manager awakening. She indicates that she has not lost her desire for sleep but, instead, refers to herself as having an inability to sleep. -The patient also indicates that her difficulty sleeping is independent of her mood, and that she has trouble sleeping even when her mood feels normal. -We will begin lorazepam 1 mg at bedtime as a standing dose order for sleep. 03/25/20 - see plan as above with seroquel/HS and prn vistsaril and prn ativan availble (4) UTI (urinary tract infection): - presumptive UTI by elevated WBC in urine, frequency, discomfort wtih urinating, but not complicated as no f/c/s, no CVA tenderness and WBC counts not elevated in CBC. - pt denies known drug allergies, did have 3 week course of doxycycline ending in February for presumptive Lyme's disease from PCM. will need to monitor for s/sx of yeast infection due to subsequent ABX - start bactrim DS bid for 3days (per [employer] non-compliated uti guidance) Inventory Assets Strengths: Intelligence. Highly supportive family. Positive work history. Accomplished. 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 Needs: Mood stabilization. Resolution of psychosis. Risk Factors Assessment Male: No : Yes Do You Have Access To A Gun?: No Health Problems: No Mental Health Diagnoses: Yes Substance Use Disorders: No Previous Attempt: No Family History of Suicide: No Previous Psychiatric Hospitalization: No Hopelessness: No Smoker: No Protective Factors Assessment Judaism Beliefs: No : No Responsible for Young Children: No Employed: Yes ([employer]) Stable Relationships: Yes Supportive Family: Yes Good Rapport with Provider: Yes Absence of Any Risk Factors Above: No Interval History Chief Complaint "I am calm". Review of Systems Sleep Information Total Hours of Sleep: 6.25 Meal Information Percent Meal Consumed - Breakfast: 50 Percent Meal Consumed - Lunch: 50 Subjective Subjective Patient was seen & assessed and interval progress reviewed with nursing and social work. Patient was noted to be tearful and agitated yesterday screamed at sister who visited, and irritable and argumentative. She did receive one dose of risperdal 0.5mg prior to declining further doses, and was prescribed seroquel XR 300mg which was not given last night due to sleeping at time of dose 21:52pm documented by nursing. She did receive afternoon prn of vitaril at 1549 25mg, and then 50mg at 2241, as well as ativan 1mg at 2241. She slept overnight and still asleep at shift change Today met with patient she states "I feel calm and confused" When asked about this she notes "I am thinking a lot about regrets in past friendships things I did to drive others away....you look like my friend that is why I feel comfortable with you." She states she slept last night and today does not feel groggy. She was made aware that she has not yet received Seroquel XR 300mg due to sleeping but will tonight for bipolar disorder both serving as a mood stabilizer and an antidepressant. She asks if it causes weight gain and I was clear that we need to monitor for weight gain, blood sugar changes and cholesterol changes and sedation but these to not happen to everyone who takes this medication. Provider also discussed how in the hospital our goal is to help stabilize her mood and thoughts, and that further modifications to medications can be accomplished with her providers when she moves to the outpatient setting. Provider was clear that i am aware of her 72hour notice but that I am observing her symptoms, and her ability to tolerate medication and that the goal is for her to be sleeping well, thinking more clearly and feeling more stable prior to discharge because to discharge too soon could cause her to continue to be ill, or cause her harm due to symptoms impairing her. So that I could not give a decision on Friday discharge vs. the possibility we may recommend that she stay in the hospital longer to achieve these goals. She listened nodded and stated she understood. She denied having questions and did not seem to express positive or negative response to this information. 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 She describes urinary frequency she has some abdominal discomfort that leads her to believe that she "may be , but I know i am not." SHe is urinating frequently but notes she is drinking fluids frequently today, discomfort wtih urination no burning, voiding urine each time not having any difficulty starting or stopping her stream, no bloating, no CVA tenderness, no difficulties wtih bowels. She denies f/c/s, no n/v/d. Physical Exam Vital Signs (Past 24 Hours) Last Vital Signs Temp 36.7 C 03/25/20 06:53 Pulse 108 H 03/25/20 07:05 Resp 18 03/25/20 06:53 BP 129/87 03/25/20 06:55 Pulse Ox 95 03/24/20 06:04 Results & Data ([facility]) Current Inpatient Medications Current Inpatient Medications: Current Inpatient Medications Acetaminophen (Tylenol) 650 mg PO Q4H PRN PRN Reason: Headache or Minor Fever Stop: 04/23/20 04:48 Last Admin: 03/24/20 14:28 Dose: 650 mg Documented by: Al Hydrox/Mg Hydrox/Simethicone (Maalox) 30 ml PO Q4H PRN PRN Reason: GI Upset Stop: 04/23/20 04:48 Bismuth Subsalicylate (Kaopectate) 15 ml PO PRN PRN PRN Reason: Loose Stool Stop: 04/23/20 04:48 Hydroxyzine HCl (Vistaril) 50 mg PO HSZ PRN PRN Reason: Insomnia Stop: 04/23/20 04:48 Last Admin: 03/24/20 22:41 Dose: 50 mg Documented by: Hydroxyzine HCl (Vistaril) 25 mg PO Q4H PRN PRN Reason: Anxiety Stop: 04/23/20 04:48 Last Admin: 03/25/20 11:24 Dose: 25 mg Documented by: Lorazepam (Ativan) 1 mg PO Q6H PRN PRN Reason: Anxiety Stop: 04/23/20 04:50 Last Admin: 03/24/20 12:59 Dose: 1 mg Documented by: Lorazepam (Ativan) 1 mg PO HS PONCHO Stop: 04/23/20 21:59 Last Admin: 03/24/20 22:40 Dose: 1 mg Documented by: Magnesium Hydroxide (Milk Of Magnesia) 30 ml PO DAILY PRN PRN Reason: Constipation Stop: 04/23/20 04:48 Quetiapine Fumarate (Seroquel Xr) 300 mg PO HS PONCHO Stop: 04/24/20 21:59 Sodium Chloride (Dane Nasal) 1 - 2 sprays NA PRN PRN PRN Reason: Nasal Dryness/Congestion Stop: 04/23/20 04:48 Mental Health & Subst Abuse Tx Therapist Name of Therapist: Mansi FernándezDkxpva-WYK-opuird Inspecting Engineer Name of Inspecting Engineer: None Post Discharge Appointments Primary Care Physician Name Of Family Doctor: Jacinda Berumen [facility] Primary Care Provider Appointment Comment: [address], [address], [place] [address] Contact Information Discharge Discharge Address: [address] [place] [id number]
[2020-03-25] MEDS: LORazepam 1 MG TAB PO PRN (19:25)
[2020-03-25] MEDS: SULFAMETHOXAZOLE/TRIMETHOPRIM DS 800/160MG TAB PO SCH (20:26)
[2020-03-25] MEDS ORDERED: QUETIAPINE FUMARATE 300 MG TABCR PO SCH (22:00)
[2020-03-25] MEDS ORDERED: QUETIAPINE FUMARATE 150 MG TABCR PO SCH (22:00)
[2020-03-26] MEDS: LORazepam 1 MG TAB PO PRN ×3 (01:22→19:26)
[2020-03-26] MEDS: SULFAMETHOXAZOLE/TRIMETHOPRIM DS 800/160MG TAB PO SCH ×2 (08:16→21:02)
[2020-03-26 08:36] LABS: Glucose Fasting 96 mg/dl (70-99)
[2020-03-26 08:43] LABS: Chol HDL Ratio 4; Cholesterol 241 mg/dl (0-200); HDL Cholesterol 68 mg/dl; LDL Cholesterol Calculated 150 mg/dl; Triglycerides 113 mg/dl (0-150); VLDL Cholesterol 23 mg/dl
[2020-03-26] MEDS: risperiDONE ODT 0.5 MG SOLTAB PO SCH ×2 (12:10→21:02)
--- NOTE | 2020-03-26 12:18 | Psychiatric Progress Note ---
Date of Service March 26, 2020 Impression / Recommendations Impression This 34-year-old woman was brought to the emergency room the night of 03/23/20 by her sister because of recent changes in the patient's behaviors. Identified concerns include the fact that, for approximately the past month, the patient has been progressively more emotionally labile, more irritable, more disorganized, and, recently, is making statements that suggest that she is delusional. 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 She has begun insisting that she had learned that someone, yet to be identified, was in mortal danger and that she needed to determine who that person might be. Most recently, she reported to the family that she had determined that the person in mortal danger was herself, and the nature of the danger was risk of suicideand, within that context, began taking various steps to mitigate against her perceived risk of suicide. Although her current symptoms do not entirely classic for bipolar disorder, manic phase, and although she reportedly has never been diagnosed as bipolar in the past, she currently has had several weeks of irritable mood, decreased sleep, increased energy (working throughout the night at her office), and, possibly developing an erotomanic fixation on 1 of her coworkers. The patient, herself, says that she feels that she became "manic" (her word) when her dose of Lexapro was increased from 10 mg to a dose of 20 mg. Complicating the clinical picture is a pretty clear history of OCD and, possibly, OCPD. She acknowledges that she is obsessed with the idea that someone might break into her house or that she might leave an appliance on, and so she has to regularly check doors, windows, and burners in her home. She also indicates that she has to check a specific number of times by shaking or rattling the doorknobs to confirm that the doors are locked. Further, she notes that it is not unusual for her to need to turn around on her way to work or elsewhere in order to "triple check" that she locked her door when she left the house, even though she realizes that she has. Within this context, the patient acknowledges that she has alien, intrusive, ego-dystonic thoughts, but says that she is not disposed to discuss them at the present time. The patient is very emotionally labile and bumptious and her approach to staff, and she repeatedly insists that Lexapro 10 mg daily works very well for her and that she would be willing to try other medications as long as she can continue to take Lexapro 10 mg. She has concerns about weight gain, and tells us that she is reluctant to consider lithium carbonate. She did agree to risperidone 0.5 mg twice a day as a mood stabilizer, and, of course, the hope will be that we can titrate this dose, or convince her to reconsider taking lithium. However the patient after one dose of risperdal 0.5mg refused further dosing and was consented to Seroquel XR 300mg. The patient's sister, who is on staff at the hospital ([employer]) is very supportive and has offered to help in any way she can. (1) Altered mood associated with froy: 03/24/20 -The patient has been admitted to the [facility] behavioral [facility] unit and is being closely observed. When appropriate, she will be encouraged to participate in group and activity therapies. We will also arrange for family interventions, particularly given the patient's reported closeness with her sister and her parents. -The patient's symptoms are not fully classic for froy, and she reportedly has never had a previous episode of manic-like symptoms. Currently, she number of her symptoms are consistent with a manic episode. She is quite irritable, emotionally labile, reportedly has been working in her office throughout the night on certain nights, has been spending money on apparently useless or unneeded objects, and she has described her thoughts as being "confused." Subjectively, the patient refers to herself as being depressed and what we may be seeing as a "mixed state." -There is also a past history of recurrent episodes of depression that are characterized by depressed mood, communications clerk awakening, crying spells, anergia, apathy, poor concentration, and psychosocial withdrawal. -We are continuing Lexapro at a lower dose (10 mg a day from 20 mg a day) because the patient, in addition to being irritable, appears depressedand because she insists that Lexapro has helped under similar conditions in the past. However, we will proceed with caution because it is possible that Lexapro, even at lower dosages, may be exacerbating her emotional lability. -We have begun risperidone 0.5 mg twice a day. Material risks and anticipated benefits of risperidone were reviewed with the patient and she indicated understanding. She has some reluctance because of her concern about weight gain, and we assured her that we would monitor for this. (of note after this pt refused risperdal and Dr Neal ordered seroquel XR 300mg/hs) 03/25/20 - pt was able to sleep with combination of one dose of Risperdal 0.5mg total of 75mg vistaril and total of 2mg ativan slept overnight (seroquel XR 300mg held due to patient sleeping) TOday she still has some loose associations of this provider being like her friend as reasons to immediately trust, and some possibly delusional thoughts about , she seems more subdued, calm and able to participate. Discussed seroquel XR plan for this evening and rationale and r/b/se/a and patient is accepting. These are all good prognostic signs, however I will delay rendering a full opioin on her 72hour notice as further observation is needed and ongoing improvements in reduction of psychosis, ongoing non-labile mood, consistent sleep are all important for ability to be safe in the community. Further patient needs to establish clear aftercare prior to discharge as well. She seems accepting of this today. Continue Serqouel XR 300mg first dose will be tonight, remove scheduled hs ativan as I do beleive seroquel will be sedating enough on it's own now that she is not as elevated/agitated as she was 03/24, and she has hs vistaril prn and ativan prn if she is not resting. will need to order fasting cholesterol and blood sugar 03/26/20 - pt is grossly worsened overnight despite seroquel XR 300mg, and vitaril 50mg and 1mg ativan with poor sleep, return of fearfulness, and worsening of thoughts of being at risk for delusionally based harms at times even questioning if she is part of this concern, disorganized beahvior and thinking as well. Interestingly when presented to her that she appeared somewhat improved yesterday relaying that to risperdal, and worsened today relaying that to less efficacy of seroquel she does ask appropriate questions about medication risk and engage in a meaningful way. SHe is not excited by thought of medication but agrees to return to risperdal, will place on 0.5mg po bid first dose now, and 0.5mg po bid prn for agitation/psychosis, will stop vistaril and seroquel due to polypharmacy and risk they may be contributing to urinary hesitancy, and prefer prn ativan for agitation/insomnia, but would ask that be reserved if risperdal has already been given and ineffective, cautiously watching for excessive s edation. Cholesterol is elevated 241, and LDL elevated 150, HDL is high at 68, TG WNL, FBS 96. SO I do not beleive risperdal is a great fpc option for patient, but for stablization and working toward initial goal of stablization and movement to outpatient setting the relative risk is worth the benefits, and no greater risk with risperdal over serqouel. (IN future could consider lamictal, or latuda with caution as possibly more weight neutral options. (2) Anxiety: 03/24/20 -Patient describes symptoms of generalized anxiety that date back for many years. These include a sense that things are "just about to go out of control." -The patient also would meet criteria for obsessive-compulsive disorder as part of her anxiety. Her symptoms primarily have to do with a compulsion to repeatedly check objects such as door locks, windows locks, and appliances. These compulsions are linked to obsessive worries that cause extreme anxiety if not gratified. -The patient says that she feels that Lexapro has helped with her anxiety and with her obsessive worrying, checking behaviors. However, she says that Lexapro 10 mg a day works well, while Lexapro 20 mg a day has caused some of the symptoms we are currently observing. 03/25/20 and 03/26/20 - agree with holding lexapro, seroquel may provide some off label benefits for anxiety, and in future consider buspar as less provocative agent for anxiety if not already trialed. (3) Insomnia: 03/24 -The patient acknowledges that she has not been sleeping well. She describes what may be a 2-hour sleep onset delay, followed by regular intermittent insomnia, and then communications clerk awakening. She indicates that she has not lost her desire for sleep but, instead, refers to herself as having an inability to sleep. -The patient also indicates that her difficulty sleeping is independent of her mood, and that she has trouble sleeping even when her mood feels normal. -We will begin lorazepam 1 mg at bedtime as a standing dose order for sleep. 03/25/20 - see plan as above with seroquel/HS and prn vistsaril and prn ativan availble 03/26 - see plan to use risperdal and prn ativan as above (stopped seroquel and vistaril) (4) UTI (urinary tract infection): 03/25 - presumptive UTI by elevated WBC in urine, frequency, discomfort wtih urinating, but not complicated as no f/c/s, no CVA tenderness and WBC counts not elevated in CBC. - pt denies known drug allergies, did have 3 week course of doxycycline ending in February for presumptive Lyme's disease from PCM. will need to monitor for s/sx of yeast infection due to subsequent ABX - start bactrim DS bid for 3days (per [employer] non-compliated uti guidance) Inventory Assets Strengths: Intelligence. Highly supportive family. Positive work history. Accomplished. 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 Needs: Mood stabilization. Resolution of psychosis. Risk Factors Assessment Male: No : Yes Do You Have Access To A Gun?: No Health Problems: No Mental Health Diagnoses: Yes Substance Use Disorders: No Previous Attempt: No Family History of Suicide: No Previous Psychiatric Hospitalization: No Hopelessness: No Smoker: No Protective Factors Assessment Yazidism Beliefs: No : No Responsible for Young Children: No Employed: Yes ([employer]) Stable Relationships: Yes Supportive Family: Yes Good Rapport with Provider: Yes Absence of Any Risk Factors Above: No Interval History Chief Complaint "I am scared". Review of Systems Sleep Information Total Hours of Sleep: 3.5 Meal Information Percent Meal Consumed - Breakfast: 100 Percent Meal Consumed - Lunch: 100 Percent Meal Consumed - Dinner: 75 Subjective Subjective Patient was seen & assessed and interval progress reviewed with nursing and social work. Per staff the patient slept 3.5 h overnight broken sleep taking Seroquel XR 300mg and 1mg Ativan, this morning she was scared, paranoid and requested medication was given Ativan 1mg. She noted to staff she is concerned about patient's on the unit, scared of a male pt who has not approached her and is rather docile and reclusive, and scared of a female pt who also has not engaged the patient but has been walking laps around the unit with a grim expression on her face. Pt was noted to call her sister yesterday and use a childlike tone which sister notes is not like pt and asked sister to call security to come to the unit to check on the safety of the unit. She again told nursing that she was concerned about being . She was disorganized at one point laying down on the floor, and saying her feeling word was "artichoke" in group. She appears distressed and frightened to staff. She referenced "checking in with my partner" as a coping skill in another group and when asked if she has a partner she noted "I think I do." But could not carry on further meaningful discussion. Met with patient in her room today. She notes she is scared stating "I thought someone was trying to kill patients [that female patient who is walking] she seemed that she wanted to kill the other patients....someone wants to kill the other patients and I don't think it is me." She does not recall her concerns about the male patient. She then becomes perseverative on if the female pt has killed her child "is the child alright?" Ween provider stated I cannot discuss other care, but that no children are in harms way at this time the patient said "then the child must have ." Pt does not seem reassured when this provider clarifies that no children have . Patient agrees she did not sleep last night, she reports she is having trouble urinating today "sometimes I go, and sometimes I don't." She denies pain or dysuria, no abdominal pain, and no flank tenderness, no f/c/s. She states today "I feel sedated" Discussed medications with patient, noting she seemed more clear yesterday (Friday) after Friday Risperdal, but today seems more confused again after Friday night Seroquel. Asked her if she is willing to return to Risperdal. She asks what the risks are noted risk of elevated cholesterol, weight gain and elevated blood sugar, watching for movements of the mouth lip or tongue overtime, and for restlessness and tightness. She asks about the legal suits by men growing breasts. Provider stated there is a possible risk of blocking d opamine causing prolactin levels to rise which can stimulate fluid to leak from the breast and some breast enlargement that is not common but needs to be monitored for. She states "yes I will take it if you will monitor." We went on to discuss request for her signing in voluntarily due to ongoing symptoms and need for further treatment (see below). Prior to leaving the room provider again asked if she had questions about the medications, and she said "no" and asked if she was indeed agreeing to resume Risperdal and she said, "yes." Discussed her request to leave the hospital and my concern that her symptoms are ongoing and if she leaves the hospital the risk of ongoing confusion and poor sleep and risk that she will worsen exists until we find a medication that reduces her symptoms. I asked her to sign in for ongoing treatment through this week. She states "I need to think about it." She notes she would prefer to see her therapist in person tomorrow and seems exasperated that provider noted that appt can be rescheduled, and asks if she can do "day camp rather than overnight camp." Provider noted there are no intensive outpatient day programs in this area and that inpatient care is the recommended treatment at this time. She notes "let me think about it." Physical Exam Psychiatric Orientation: alert, oriented to person, oriented to place, oriented to time and cooperative Apperance: + disheveled appears tired, noted legs are unshaved hair is long, hair is combed but not groomed and hagning in her face haphazardly while she talks, she sits on bed with legs crossed in [id number]-style, slumped forward only occassionally looking at provider. Eye Contact: + fair eye contact Motor Behavior: steady gait and station and no abnormal motor movements; no psychomotor agitation, no psychomotor retardation, n EPS and n akathisia SPeech is regular rate, and rthym, slighly low volume and tired tone Affect: + depressed affect expresses fearfulness, does not state if she feels depressed, when asked mood she states "sedated, I feel sedated" coherent words, but vascillates between logical and goal directed to at times illogical delusional manner of relaying concepts Thought Content: + delusions disorganized thoughts and actions, delusional fears and permeable boundaries of feeling others are harmful and have mal-intent vs. .questioning if she has mal- intent, clearly some ideas of reference Suicidal Thoughts: denies suicidal thoughts Homicidal Thoughts: denies homicidal thoughts Hallucinations: no auditory hallucinations and no visual hallucinations limited by psychosis and sedation intact vocabulary and thoughtful questions demonstrating average to above average level of intelligence Insight: + impaired insight Judgement: + impaired judgement Vital Signs (Past 24 Hours) Last Vital Signs Temp 36.6 C 03/26/20 07:04 Pulse 120 H 03/26/20 07:07 Resp 16 03/26/20 07:04 BP 118/82 03/26/20 07:07 Pulse Ox 95 03/24/20 06:04 Results & Data ([facility]) Laboratory Results Laboratory Results - last 24 hr 03/26/20 07:58 Fasting Glucose 96 Triglycerides 113 Cholesterol 241 H LDL Cholesterol, Calc 150 VLDL Cholesterol, Calc 23 HDL Cholesterol 68 Cholesterol/HDL Ratio 4 Current Inpatient Medications Current Inpatient Medications: Current Inpatient Medications Acetaminophen (Tylenol) 650 mg PO Q4H PRN PRN Reason: Headache or Minor Fever Stop: 04/23/20 04:48 Last Admin: 03/24/20 14:28 Dose: 650 mg Documented by: Al Hydrox/Mg Hydrox/Simethicone (Maalox) 30 ml PO Q4H PRN PRN Reason: GI Upset Stop: 04/23/20 04:48 Bismuth Subsalicylate (Kaopectate) 15 ml PO PRN PRN PRN Reason: Loose Stool Stop: 04/23/20 04:48 Lorazepam (Ativan) 1 mg PO Q6H PRN PRN Reason: anxiety or insomnia Stop: 04/23/20 04:50 Magnesium Hydroxide (Milk Of Magnesia) 30 ml PO DAILY PRN PRN Reason: Constipation Stop: 04/23/20 04:48 Risperidone (Risperdal M) 0.5 mg PO BID PRN PRN Reason: psychosis or agitation Stop: 04/25/20 11:59 Risperidone (Risperdal M) 0.5 mg PO BID PONCHO Stop: 04/25/20 11:59 Sodium Chloride (Placer Nasal) 1 - 2 sprays NA PRN PRN PRN Reason: Nasal Dryness/Congestion Stop: 04/23/20 04:48 Trimethoprim/Sulfamethoxazole (Septra Ds 800/160mg Tab) 1 tab PO Q12 PONCHO Stop: 03/28/20 09:01 Last Admin: 03/26/20 08:16 Dose: 1 tab Documented by: Mental Health & Subst Abuse Tx Therapist Name of Therapist: Mansi Mendez [facility] (in person appt) Therapist's Date of Therapist Appointment: 03/30/20 Time of Therapist Appointment: 5pm Therapy Appointment Comment: [address] [facility] Torsten Sharma [place] Soft Top Installer Name of Soft Top Installer: None Post Discharge Appointments Primary Care Physician Name Of Family Doctor: [facility] Primary Care Provider Appointment Comment: [address], [address], [place] [address] Contact Information Discharge Discharge Address: [address] [place], [place] [address]d[place] [address]
[2020-03-26] MEDS: risperiDONE ODT 0.5 MG SOLTAB PO PRN (15:11)
[2020-03-26] MEDS ORDERED: NON-FORMULARY PATIENT'S OWN MED ONE (19:01)
[2020-03-26] MEDS: [UNRECOGNIZED DRUG - OTHER] SCH (19:25)
[2020-03-27] MEDS: risperiDONE ODT 0.5 MG SOLTAB PO SCH (08:51)
[2020-03-27] MEDS: SULFAMETHOXAZOLE/TRIMETHOPRIM DS 800/160MG TAB PO SCH ×2 (08:51→20:41)
[2020-03-27] MEDS: [UNRECOGNIZED DRUG - OTHER] SCH (08:56)
--- NOTE | 2020-03-27 09:55 | Psychiatric Progress Note ---
Date of Service March 27, 2020 Impression / Recommendations Impression 34-year-old female who presented to the ER 03/23/20 with her sister due to recent behavioral change, including that, for approximately the past month, the patient has been progressively more emotionally labile, irritable, disorganized, and making delusional statements. 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 She has been insisting that she learned that someone, yet to be identified, was in mortal danger and that she needed to determine who that person might be, and then decided that that person was herself, and the nature of the danger was risk of suicide. Although her symptoms are not classic for bipolar froy, she does meet criteria as she has had several weeks of irritable mood, decreased sleep, increased energy (working throughout the night at her office), and psychosis. She reports the symptoms occurred when her dose of Lexapro was increased from 10 mg to 20 mg. Complicating the clinical picture is a pretty clear history of OCD and, possibly, OCPD. She acknowledges that she is obsessed with the idea that someone might break into her house or that she might leave an appliance on, and so she has to regularly check doors, windows, and burners in her home. She also indicates that she has to check a specific number of times by shaking or rattling the doorknobs to confirm that the doors are locked. Further, she notes that it is not unusual for her to need to turn around on her way to work or elsewhere in order to "triple check" that she locked her door when she left the house, even though she realizes that she has. Here she has been emotionally labile and argumentative, declined a trial of lithium, but did agree to risperidone; however after 1 dose, she refused further dosing and was consented to Seroquel XR 300mg, which was poorly effective, so she has since been switched back to risperidone. The patient's sister, who is on staff at the hospital ([employer]) is very supportive and has offered to help in any way she can, but unfortunately the patient is refusing family meetings with either her mother or sister. She had submitted a 72-hour notice requesting to withdrawal from treatment, but rescinded at 03/26/2020. Inpatient treatment remains medically necessary due to the severity of her symptoms and risk for harm to herself if discharged prematurely. (1) Altered mood associated with froy: 03/24/20 -The patient has been admitted to [facility] and is being closely observed. When appropriate, she will be encouraged to participate in group and activity therapies. We will also arrange for family interventions, particularly given the patient's reported closeness with her sister and her parents. -The patient's symptoms are not fully classic for froy, and she reportedly has never had a previous episode of manic-like symptoms. Currently, she number of her symptoms are consistent with a manic episode. 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 -We are continuing Lexapro at a lower dose (10 mg a day from 20 mg a day) because the patient, in addition to being irritable, appears depressedand because she insists that Lexapro has helped under similar conditions in the past. However, we will proceed with caution because it is possible that Lexapro, even at lower dosages, may be exacerbating her emotional lability. -We have begun risperidone 0.5 mg twice a day. Material risks and anticipated benefits of risperidone were reviewed with the patient and she indicated understanding. She has some reluctance because of her concern about weight gain, and we assured her that we would monitor for this. (of note after this pt refused Risperdal and ordered Seroquel XR 300mg/hs) 03/25/20 - pt was able to sleep with combination of one dose of Risperdal 0.5mg total of 75mg Vistaril and total of 2mg Ativan slept overnight (Seroquel XR 300mg held due to patient sleeping) Today she still has some loose associations of this provider being like her friend as reasons to immediately trust, and some possibly delusional thoughts about , she seems more subdued, calm and able to participate. Discussed Seroquel XR plan for this evening and rationale and r/b/se/a and patient is accepting. These are all good prognostic signs, however I will delay rendering a full opinion on her 72hour notice as further observation is needed and ongoing improvements in reduction of psychosis, ongoing non-labile mood, consistent sleep are all important for ability to be safe in the community. Further patient needs to establish clear aftercare prior to discharge as well. She seems accepting of this today. Continue Seroquel XR 300mg first dose will be tonight, remove scheduled hs Ativan as I do believe Seroquel will be sedating enough on it's own now that she is not as elevated/agitated as she was 03/24, and she has hs Vistaril prn and Ativan prn if she is not resting. will need to order fasting cholesterol and blood sugar 03/26/20 - pt is grossly worsened overnight despite Seroquel XR 300mg, and Vistaril 50mg and 1mg Ativan with poor sleep, return of fearfulness, and worsening of thoughts of being at risk for delusionally based harms at times even questioning if she is part of this concern, disorganized behavior and thinking as well. Interestingly when presented to her that she appeared somewhat improved yesterday relaying that to Risperdal, and worsened today relaying that to less efficacy of Seroquel she does ask appropriate questions about medication risk and engage in a meaningful way. She is not excited by thought of medication but agrees to return to Risperdal, will place on 0.5mg po bid first dose now, and 0.5mg po bid prn for agitation/psychosis, will stop Vistaril and Seroquel due to polypharmacy and risk they may be contributing to urinary hesitancy, and prefer prn Ativan for agitation/insomnia, but would ask that be reserved if Risperdal has already been given and ineffective, cautiously watching for excessive sedation. Cholesterol is elevated 241, and LDL elevated 150, HDL is high at 68, TG WNL, FBS 96. SO I do not believe Risperdal is a great nursing home option for patient, but for stabilization and working toward initial goal of stabilization and movement to outpatient setting the relative risk is worth the benefits, and no greater risk with Risperdal over Seroquel. (IN future could consider Lamictal, or Latuda with caution as possibly more weight neutral options. 03/27 -increase risperidone to 0.5 mg every morning and 1 mg nightly. -Schedule family meeting with parents and sister. Refer for outpatient psychiatric care. -Coordinate care with outpatient therapist. She indicates she has not been in therapy for a few months. (2) Anxiety: 03/24/20 -Patient describes symptoms of generalized anxiety that date back for many years. These include a sense that things are "just about to go out of control." -The patient also would meet criteria for obsessive-compulsive disorder as part of her anxiety. Her symptoms primarily have to do with a compulsion to repeatedly check objects such as door locks, windows locks, and appliances. These compulsions are linked to obsessive worries that cause extreme anxiety if not gratified. -The patient says that she feels that Lexapro has helped with her anxiety and with her obsessive worrying, checking behaviors. However, she says that Lexapro 10 mg a day works well, while Lexapro 20 mg a day has caused some of the symptoms we are currently observing. 03/25/20 and 03/26/20 - agree with holding lexapro, seroquel may provide some off label benefits for anxiety, and in future consider buspar as less provocative agent for anxiety if not already trialed. (3) Insomnia: 03/24 -The patient acknowledges that she has not been sleeping well. 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 She indicates that she has not lost her desire for sleep but, instead, refers to herself as having an inability to sleep. -The patient also indicates that her difficulty sleeping is independent of her mood, and that she has trouble sleeping even when her mood feels normal. -We will begin lorazepam 1 mg at bedtime as a standing dose order for sleep. 03/25/20 - see plan as above with seroquel/HS and prn vistsaril and prn ativan availble 03/26 - see plan to use risperdal and prn ativan as above (stopped seroquel and vistaril) (4) UTI (urinary tract infection): 03/25 - presumptive UTI by elevated WBC in urine, frequency, discomfort wtih urinating, but not complicated as no f/c/s, no CVA tenderness and WBC counts not elevated in CBC. - pt denies known drug allergies, did have 3 week course of doxycycline ending in February for presumptive Lyme's disease from PCM. will need to monitor for s/sx of yeast infection due to subsequent ABX - start bactrim DS bid for 3days (per [employer] non-compliated uti guidance) Inventory Assets Strengths: Intelligence. Highly supportive family. Positive work history. Accomplished. 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 Needs: Mood stabilization. Resolution of psychosis. Risk Factors Assessment Male: No : Yes Do You Have Access To A Gun?: No Health Problems: No Mental Health Diagnoses: Yes Substance Use Disorders: No Previous Attempt: No Family History of Suicide: No Previous Psychiatric Hospitalization: No Hopelessness: No Smoker: No Protective Factors Assessment Scientology Beliefs: No : No Responsible for Young Children: No Employed: Yes ([employer]) Stable Relationships: Yes Supportive Family: Yes Good Rapport with Provider: Yes Absence of Any Risk Factors Above: No Interval History Identifying Information ISMAEL VALENZUELA is a 34-year-old F who currently lives in [place], has a history of depression, OCD, OCP D, and DOMINICK, and was admitted on 03/24/20 04:49 on a 201 voluntary commitment for froy. Chief Complaint " It's been a long day". Review of Systems Sleep Information Total Hours of Sleep: 5 Meal Information Percent Meal Consumed - Breakfast: 100 Percent Meal Consumed - Lunch: 100 Percent Meal Consumed - Dinner: 100 Subjective Subjective Patient was seen & assessed and interval progress reviewed with treatment team. Staff report she has been labile, tearful, with loose associations. She is refusing a family meeting with her mother or sister as recommended, stating they do not understand that she needs to be at home and not in the hospital. She told staff she wanted to "push all the doors to see if I could get out," and made statements that she would "manan this place for false imprisonment." She had submitted a 72-hour notice requesting to withdrawal from treatment, but rescinded it yesterday. She told staff that she believed she is being stalked, was going to here, and was up in the middle of the night and told staff she is afraid the other patients are in danger and thought that they were going to in their sleep. Her sister called in to inform staff that the patient called her and told her someone is trying to kill her here, and that she believed an old man on the [facility] today. She has called family members to tell them she is being discharged and asked that they come pick her up. She is taking risperidone as ordered, and received hydroxyzine last night for sleep. 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 hours, and "things have been very strange, but I feel better than when I first came in." She says she came here to "rest, and I'm okay to stay here and rest if that's what everyone thinks I should do, but if I stay here much longer, I'm going to run around naked." She then says "that was a joke," and that what she means is "I'm afraid I'll lose my mind" if she stays here, as she tends to become very focused on wanting to help other people and worries she will "lose myself." She says that when she is stressed, she works a lot, and she thinks that is what led to her decompensation and hospitalization. 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 She reviewed her multiple stressors, including the pandemic, her work, concerns about foreign students, and romantic interest in a coworker. She is concerned because she has "emotionally and mentally stocked people" in the past, and says her past psychiatrist told her she could go to [facility] if she ever stopped someone. She reports thoughts that she or someone else will soon, relating this to a movie she watched where a character killed her family with carbon monoxide from a car. After she sought, she panicked and thought "what if I did that, killed everyone in my house." She was so concerned that she moved her car outside the garage. She then thought that a professor she knows had moved into houses down from her, so went to the house and tried to get in as she feared he was going to try to kill himself. She was not able to gain access to the house as the doors were locked, and notes she is not even sure if he actually lives there. She has had concerns here in the hospital that other patients are going to or have already , or that they are stalking her and " figured out everything about me, and now are trying to kill me with carbon monoxide." She says she heard a patient reading his cage, and then saw a rainbow outside at night, so thought that meant he had . She is able to recognize that her thoughts are abnormal and that she is making connections where there might not be any, and that therefore it is good to be in the hospital where she is safe. She denies side effects to medications other than dry mouth, and says she is eating well and drinking. She is agreeable to a family meeting with her parent and sister. Physical Exam Psychiatric Orientation: alert, oriented to person, oriented to place and cooperative; + not oriented to time Apperance: appropriately dressed and + disheveled Hair pulled back in a messy ponytail, wearing a [employer] sweatshirt, black pants, and crocs Eye Contact: good eye contact Motor Behavior: steady gait and station and no abnormal motor movements Speech: normal rate/rhythm/volume of speech Affect: + blunted affect "Better." Thought Process: + tangential thought process and + looseness of associations Thought Content: + preoccupation, + obsessions, + paranoid, + cognitive distortions, + ideas of reference and + persecution Suicidal Thoughts: + reports suicidal thoughts But thinks someone else might try to kill her, or that she might harm people due to obsessive thoughts of using carbon monoxide poisoning Homicidal Thoughts: denies homicidal thoughts Hallucinations: no auditory hallucinations Cognition: language grossly intact; + recent memory not intact Insight: + impaired insight Judgement: + impaired judgement Vital Signs (Past 24 Hours) Last Vital Signs Temp 36.5 C 03/27/20 06:45 Pulse 103 H 03/27/20 06:46 Resp 18 03/27/20 06:45 BP 134/87 03/27/20 06:46 Pulse Ox 95 03/24/20 06:04 Results & Data ([facility]) Current Inpatient Medications Current Inpatient Medications: Current Inpatient Medications Acetaminophen (Tylenol) 650 mg PO Q4H PRN PRN Reason: Headache or Minor Fever Stop: 04/23/20 04:48 Last Admin: 03/24/20 14:28 Dose: 650 mg Documented by: Al Hydrox/Mg Hydrox/Simethicone (Maalox) 30 ml PO Q4H PRN PRN Reason: GI Upset Stop: 04/23/20 04:48 Bismuth Subsalicylate (Kaopectate) 15 ml PO PRN PRN PRN Reason: Loose Stool Stop: 04/23/20 04:48 Lorazepam (Ativan) 1 mg PO Q6H PRN PRN Reason: anxiety or insomnia Stop: 04/23/20 04:50 Last Admin: 03/26/20 19:26 Dose: 1 mg Documented by: Magnesium Hydroxide (Milk Of Magnesia) 30 ml PO DAILY PRN PRN Reason: Constipation Stop: 04/23/20 04:48 *Tri Femynor*Non- Formulary Patient's Own Med 1 ea N/A QAM [facility] Stop: 04/25/20 19:29 Last Admin: 03/27/20 08:56 Dose: 1 mg Documented by: Risperidone (Risperdal M) 0.5 mg PO BID PRN PRN Reason: psychosis or agitation Stop: 04/25/20 11:59 Last Admin: 03/26/20 15:11 Dose: 0.5 mg Documented by: Risperidone (Risperdal M) 0.5 mg PO BID [facility] Stop: 04/25/20 11:59 Last Admin: 03/27/20 08:51 Dose: 0.5 mg Documented by: Sodium Chloride ([place] Nasal) 1 - 2 sprays NA PRN PRN PRN Reason: Nasal Dryness/Congestion Stop: 04/23/20 04:48 Trimethoprim/Sulfamethoxazole (Septra Ds 800/160mg Tab) 1 tab PO Q12 [facility] Stop: 03/28/20 09:01 Last Admin: 03/27/20 08:51 Dose: 1 tab Documented by: Mental Health & Subst Abuse Tx Therapist Name of Therapist: Mansi Mendez [facility] (in person appt) Therapist's Date of Therapist Appointment: 03/30/20 Time of Therapist Appointment: 5pm Therapy Appointment Comment: [address] [place] Egyptologist Name of Egyptologist: None Post Discharge Appointments Primary Care Physician Name Of Family Doctor: Jacinda Berumen [facility] Primary Care Provider Appointment Comment: [address], [address], [place] [address] Contact Information Discharge Discharge Address: [address] [place], [place] [address] [address]
[2020-03-27] MEDS ORDERED: risperiDONE 0.5 MG TABLET PO SCH (12:00)
[2020-03-27] MEDS: LORazepam 1 MG TAB PO PRN ×2 (14:16→18:51)
[2020-03-27] MEDS: risperiDONE ODT 0.5 MG SOLTAB PO PRN (19:23)
[2020-03-27] MEDS ORDERED: risperiDONE 1 MG TABLET PO SCH (22:00)
[2020-03-28] MEDS ORDERED: risperiDONE 1 MG TABLET PO PRN (08:39)
[2020-03-28] MEDS: [UNRECOGNIZED DRUG - OTHER] SCH (09:09)
[2020-03-28] MEDS: SULFAMETHOXAZOLE/TRIMETHOPRIM DS 800/160MG TAB PO SCH (09:09)
[2020-03-28] MEDS ORDERED: LORazepam 1 MG TAB PO PRN (09:15)
--- NOTE | 2020-03-28 09:16 | Psychiatric Progress Note ---
Date of Service March 28, 2020 Impression / Recommendations Impression 34-year-old female who presented to the ER 03/23/20 with her sister due to recent behavioral change, including that, for approximately the past month, the patient has been progressively more emotionally labile, irritable, disorganized, and making delusional statements. 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 She has been insisting that she learned that someone, yet to be identified, was in mortal danger and that she needed to determine who that person might be, and then decided that that person was herself, and the nature of the danger was risk of suicide. Although her symptoms are not classic for bipolar froy, she does meet criteria as she has had several weeks of irritable mood, decreased sleep, increased energy (working throughout the night at her office), and psychosis. She reports the symptoms occurred when her dose of Lexapro was increased from 10 mg to 20 mg. Complicating the clinical picture is a pretty clear history of OCD and, possibly, OCPD. She acknowledges that she is obsessed with the idea that someone might break into her house or that she might leave an appliance on, and so she has to regularly check doors, windows, and burners in her home. She also indicates that she has to check a specific number of times by shaking or rattling the doorknobs to confirm that the doors are locked. Further, she notes that it is not unusual for her to need to turn around on her way to work or elsewhere in order to "triple check" that she locked her door when she left the house, even though she realizes that she has. Here she has been emotionally labile and argumentative, declined a trial of lithium, but did agree to risperidone; however after 1 dose, she refused further dosing and was consented to Seroquel XR 300mg, which was poorly effective, so she has since been switched back to risperidone Sh, which is being titrated. E had submitted a 72-hour notice requesting to withdrawal from treatment, but rescinded it 03/26/2020. Inpatient treatment remains medically necessary due to the severity of her symptoms and risk for harm to herself if discharged prematurely. (1) Altered mood associated with froy: 03/24/20 -The patient has been admitted to the [facility] behavioral health unit and is being closely observed. When appropriate, she will be encouraged to participate in group and activity therapies. We will also arrange for family interventions, particularly given the patient's reported closeness with her sister and her parents. -The patient's symptoms are not fully classic for froy, and she reportedly has never had a previous episode of manic-like symptoms. Currently, she number of her symptoms are consistent with a manic episode. She is quite irritable, emotionally labile, reportedly has been working in her office throughout the night on certain nights, has been spending money on apparently useless or unneeded objects, and she has described her thoughts as being "confused." Subjectively, the patient refers to herself as being depressed and what we may be seeing as a "mixed state." -There is also a past history of recurrent episodes of depression that are characterized by depressed mood, reception centre manager awakening, crying spells, anergia, apathy, poor concentration, and psychosocial withdrawal. -We are continuing Lexapro at a lower dose (10 mg a day from 20 mg a day) because the patient, in addition to being irritable, appears depressedand because she insists that Lexapro has helped under similar conditions in the past. However, we will proceed with caution because it is possible that Lexapro, even at lower dosages, may be exacerbating her emotional lability. -We have begun risperidone 0.5 mg twice a day. Material risks and anticipated benefits of risperidone were reviewed with the patient and she indicated understanding. She has some reluctance because of her concern about weight gain, and we assured her that we would monitor for this. (of note after this pt refused Risperdal and ordered Seroquel XR 300mg/hs) 03/25/20 - pt was able to sleep with combination of one dose of Risperdal 0.5mg total of 75mg Vistaril and total of 2mg Ativan slept overnight (Seroquel XR 300mg held due to patient sleeping) Today she still has some loose associations of this provider being like her friend as reasons to immediately trust, and some possibly delusional thoughts about , she seems more subdued, calm and able to participate. Discussed Seroquel XR plan for this evening and rationale and r/b/se/a and patient is accepting. These are all good prognostic signs, however I will delay rendering a full opinion on her 72hour notice as further observation is needed and ongoing improvements in reduction of psychosis, ongoing non-labile mood, consistent sleep are all important for ability to be safe in the community. Further patient needs to establish clear aftercare prior to discharge as well. She seems accepting of this today. Continue Seroquel XR 300mg first dose will be tonight, remove scheduled hs Ativan as I do believe Seroquel will be sedating enough on it's own now that she is not as elevated/agitated as she was 03/24, and she has hs Vistaril prn and Ativan prn if she is not resting. will need to order fasting cholesterol and blood sugar 03/26/20 - pt is grossly worsened overnight despite Seroquel XR 300mg, and Vistaril 50mg and 1mg Ativan with poor sleep, return of fearfulness, and worsening of thoughts of being at risk for delusionally based harms at times even questioning if she is part of this concern, disorganized behavior and thinking as well. Interestingly when presented to her that she appeared somewhat improved yesterday relaying that to Risperdal, and worsened today relaying that to less efficacy of Seroquel she does ask appropriate questions about medication risk and engage in a meaningful way. She is not excited by thought of medication but agrees to return to Risperdal, will place on 0.5mg po bid first dose now, and 0.5mg po bid prn for agitation/psychosis, will stop Vistaril and Seroquel due to polypharmacy and risk they may be contributing to urinary hesitancy, and prefer prn Ativan for agitation/insomnia, but would ask that be reserved if Risperdal has already been given and ineffective, cautiously watching for excessive sedation. Cholesterol is elevated 241, and LDL elevated 150, HDL is high at 68, TG WNL, FBS 96. SO I do not believe Risperdal is a great buttermaker continuous churn option for patient, but for stabilization and working toward initial goal of stabilization and movement to outpatient setting the relative risk is worth the benefits, and no greater risk with Risperdal over Seroquel. (IN future could consider Lamictal, or Latuda with caution as possibly more weight neutral options. 03/27 -increase risperidone to 0.5 mg every morning and 1 mg nightly. -Schedule family meeting with parents and sister. Refer for outpatient psychiatric care. -Coordinate care with outpatient therapist. She indicates she has not been in therapy for a few months. 03/28 -increase risperidone to 1 mg twice daily and prn dose to 1 mg every 4 hours, as patient reported limited response to the 0.5 mg dose. Limit Lorazepam 1 mg as needed to twice a day, for use acutely in the hospital, but discontinue prior to discharge, due to disorientation and risk of worsening cognition/disinhibition/addiction/tolerance. -Family meeting with parents and sister today. See social work note. -Discharge planning: Referring for psychiatric care at [facility], needs to reestablish with outpatient therapist. (2) Anxiety: 03/24/20 -Patient describes symptoms of generalized anxiety that date back for many years. These include a sense that things are "just about to go out of control." -The patient also would meet criteria for obsessive-compulsive disorder as part of her anxiety. Her symptoms primarily have to do with a compulsion to repeatedly check objects such as door locks, windows locks, and appliances. These compulsions are linked to obsessive worries that cause extreme anxiety if not gratified. -The patient says that she feels that Lexapro has helped with her anxiety and with her obsessive worrying, checking behaviors. However, she says that Lexapro 10 mg a day works well, while Lexapro 20 mg a day has caused some of the symptoms we are currently observing. 03/25/20 and 03/26/20 - agree with holding lexapro, seroquel may provide some off label benefits for anxiety, and in future consider buspar as less provocative agent for anxiety if not already trialed. (3) Insomnia: 03/24 -The patient acknowledges that she has not been sleeping well. She describes what may be a 2-hour sleep onset delay, followed by regular intermittent insomnia, and then reception centre manager awakening. She indicates that she has not lost her desire for sleep but, instead, refers to herself as having an inability to sleep. -The patient also indicates that her difficulty sleeping is independent of her mood, and that she has trouble sleeping even when her mood feels normal. -We will begin lorazepam 1 mg at bedtime as a standing dose order for sleep. 03/25/20 - see plan as above with seroquel/HS and prn vistsaril and prn ativan availble 03/26 - see plan to use risperdal and prn ativan as above (stopped seroquel and vistaril) (4) UTI (urinary tract infection): 03/25 - presumptive UTI by elevated WBC in urine, frequency, discomfort wtih urinating, but not complicated as no f/c/s, no CVA tenderness and WBC counts not elevated in CBC. - pt denies known drug allergies, did have 3 week course of doxycycline ending in February for presumptive Lyme's disease from PCM. will need to monitor for s/sx of yeast infection due to subsequent ABX - start bactrim DS bid for 3days (per [employer] non-compliated uti guidance) Inventory Assets Strengths: Intelligence. Highly supportive family. Positive work history. Accomplished. 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 Needs: Mood stabilization. Resolution of psychosis. Risk Factors Assessment Male: No : Yes Do You Have Access To A Gun?: No Health Problems: No Mental Health Diagnoses: Yes Substance Use Disorders: No Previous Attempt: No Family History of Suicide: No Previous Psychiatric Hospitalization: No Hopelessness: No Smoker: No Protective Factors Assessment Gnosticist Beliefs: No : No Responsible for Young Children: No Employed: Yes ([employer]) Stable Relationships: Yes Supportive Family: Yes Good Rapport with Provider: Yes Absence of Any Risk Factors Above: No Interval History Identifying Information ISMAEL VALENZUELA is a 34-year-old F who currently lives alone in [place], has a history of depression, OCD, OCP D, and DOMINICK, and was admitted on 03/24/20 04:49 on a 201 voluntary commitment for froy. Chief Complaint " A lot better than other days, I feel calm". Review of Systems Sleep Information Total Hours of Sleep: 7 Meal Information Percent Meal Consumed - Breakfast: 100 Percent Meal Consumed - Lunch: 100 Percent Meal Consumed - Dinner: 100 Subjective Subjective Patient was seen & assessed and interval progress reviewed with nursing and social work. Staff report she received scheduled as well as as needed risperidone yesterday for a total of 2.5 mg, and reported this was helpful. She also received multiple doses of lorazepam for reports of anxiety, as well as Maalox for upset stomach. She attended and participated in unit programming, required some reminders regarding boundaries with peers, and her treatment goal was to water her aguirre at home. Family meeting was scheduled with her parents and sister for today. Mood was observed to be labile, and although she reported feeling agitated last evening, she appeared to sleep well overnight. On my assessment today, she states mood has been "up and down," with multiple mood swings daily. Exacerbated by fear of being in the hospital "longer, days or weeks." She is focused on wanting to go home, spending time with her pets, wa tering her plants, reading, watching movies, and spending time with her family. She is planning to take some time off work to recover, and wants her sister to talk to her boss for her and arrange for her [facility] paperwork to be completed. She is still having thoughts that others are in danger, but they are less intense and she has noticed "if I'm calm myself, they subside." She continues to express concerns about other patients, stating "I don't know how time really works here, but I was afraid (female peer) was stalking me because I'm interested in a new marely and he had a stalker once, but then I realized that's s not right." She continues to report fears that other patients are going to imminently, or have already . She denies suicidal thoughts or intrusive thoughts of , but then says she has been feeling that if she falls asleep she will , so has been avoiding going to sleep. She reports improvement of UTI symptoms. Physical Exam Psychiatric Orientation: alert and cooperative; + not oriented to time Apperance: appropriately dressed, appropriately groomed and appeared stated age Eye Contact: good eye contact Motor Behavior: steady gait and station and no abnormal motor movements Speech: normal rate/rhythm/volume of speech Affect: + blunted affect "Up and down" Thought Process: + looseness of associations (But improving) Thought Content: + paranoid and + delusions Suicidal Thoughts: denies suicidal thoughts But reports fears that people around her will imminently or have just , and that she will if she falls asleep Homicidal Thoughts: denies homicidal thoughts Hallucinations: no auditory hallucinations and no visual hallucinations Cognition: attention grossly intact and language grossly intact; + recent memory not intact Estimated Intelligence: consistent with education level Insight: + impaired insight Judgement: + impaired judgement Vital Signs (Past 24 Hours) Last Vital Signs Temp 36.7 C 03/28/20 06:40 Pulse 103 H 03/28/20 06:41 Resp 18 03/28/20 06:40 BP 125/83 03/28/20 06:41 Pulse Ox 95 03/24/20 06:04 Results & Data ([facility]) Current Inpatient Medications Current Inpatient Medications: Current Inpatient Medications Acetaminophen (Tylenol) 650 mg PO Q4H PRN PRN Reason: Headache or Minor Fever Stop: 04/23/20 04:48 Last Admin: 03/24/20 14:28 Dose: 650 mg Documented by: Al Hydrox/Mg Hydrox/Simethicone (Maalox) 30 ml PO Q4H PRN PRN Reason: GI Upset Stop: 04/23/20 04:48 Last Admin: 03/27/20 16:28 Dose: 30 ml Documented by: Bismuth Subsalicylate (Kaopectate) 15 ml PO PRN PRN PRN Reason: Loose Stool Stop: 04/23/20 04:48 Lorazepam (Ativan) 1 mg PO Q6H PRN PRN Reason: anxiety or insomnia Stop: 04/23/20 04:50 Last Admin: 03/27/20 18:51 Dose: 1 mg Documented by: Magnesium Hydroxide (Milk Of Magnesia) 30 ml PO DAILY PRN PRN Reason: Constipation Stop: 04/23/20 04:48 *Tri Femynor*Non- Formulary Patient's Own Med 1 ea N/A QAM [facility] Stop: 04/25/20 19:29 Last Admin: 03/27/20 08:56 Dose: 1 mg Documented by: Risperidone (Risperdal) 1 mg PO BID PONCHO Stop: 04/27/20 08:59 Risperidone (Risperdal) 1 mg PO Q4H PRN PRN Reason: psychosis Stop: 04/27/20 08:38 Sodium Chloride ([place] Nasal) 1 - 2 sprays NA PRN PRN PRN Reason: Nasal Dryness/Congestion Stop: 04/23/20 04:48 Mental Health & Subst Abuse Tx Therapist Name of Therapist: [facility] (in person appt) Therapist's Date of Therapist Appointment: 03/30/20 Time of Therapist Appointment: 5 pm Therapy Appointment Comment: [address] [place] [employer] Name of [employer]: None Post Discharge Appointments Primary Care Physician Name Of Family Doctor: [facility] Primary Care Provider Appointment Comment: [address], [address], [place] [address] Contact Information Discharge Discharge Address: [facility] [place] [address]
[2020-03-28] MEDS: risperiDONE 1 MG TABLET PO SCH ×2 (09:35→20:37)
[2020-03-29] MEDS: risperiDONE 1 MG TABLET PO SCH (07:42)
[2020-03-29] MEDS: [UNRECOGNIZED DRUG - OTHER] SCH (07:42)
--- NOTE | 2020-03-29 09:49 | Discharge Summary ---
Date of Service March 29, 2020 History of Present Illness The patient is a 34-year-old woman with a known history of psychiatric illness who, over the years, has apparently carried various diagnoses including depression, obsessive-compulsive disorder, obsessive-compulsive personality disorder, and generalized anxiety disorder. She was brought to the [facility] emergency department last night by her sister, and attending physician on the staff at [facility], because the patient's behavio r was becoming progressively more irritable, emotionally labile, and disorganized. According to the patient's sister the patient's family (sister and parents) began to notice concerning behaviors approximately a month ago. These behaviors included making multiple and apparently random purchases, purchasing a very large number of plants for her front porch that she reportedly said that she believed would protect her against COVID-19, and, according to her sister, acquiring a large number of objects to the degree that her house now appears cluttered. 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 The family was aware that the patient was not sleeping and the patient, herself, confirms that she has not been sleeping. Further, she reportedly had been sending irrational texts to various individuals who were bringing these irrational text to the attention of her family and suggesting that something appeared to be wrong. The patient tells us that she had become convinced that someone whom she cared about was in mortal danger, and she became focused on determining who that individual might be. Shortly before she was brought to medical attention for the current admission she revealed that she had decided that the person who was in mortal danger was herself, and that the risk was suicide. The patient reportedly responded by taking various steps to mitigate against the risk of suicide. The patient's family also noted that the patient was frequently asking repetitive questions, such as "what day is it," and "w when was 18 March?" During her admission assessment, the patient stared at a wall clock and repeatedly asked, "what time is it? Tell me what time it is!" When asked if she could tell time on an analog clock, she laughed and said, "yes. What time is it?" When she was asked to look at the clock and tell us, she said "could it be 1:45? Is it 1:45 AM or p.m.? How can I tell!" The patient also began the encounter by asking me if today was "the ," in reference to the date, and it was confirmed that, in fact, today is March 24. However, a number of times during the encounter, she ask "what day is it? What day of the week is it? What is the date?" She also asked several times when 18 March fell this year, and appeared distressed when she was told that it was last Friday. Complicating the clinical picture is the reported fact that the patient has in the past carried diagnoses of obsessive-compulsive personality disorder, obsessive-compulsive disorder, anxiety, as well as depression. According to the family, the patient's condition worsened approximately a week ago, around 18 March. The patient's sister noted that within the past week or so the patient had been talking about a certain male coworker in a manner that suggested that she, the patient, possibly had developed an erotomanic delusional belief regarding this individual --although the patient's sister could not be certain that this was the case. Also possibly contributing is the report that the patient's dose of Lexapro had been increased from Lexapro 10 mg a day to a dose of Lexapro 20 mg a day approximately 2 weeks ago. The patient, herself, says that, in retrospect, this may have been a mistake because while Lexapro 10 mg daily made her feel "better," Lexapro 20 mg a day made her feel "manic." Physical Exam Psychiatric Orientation: alert and cooperative Apperance: appropriately dressed, appropriately groomed and appeared stated age Eye Contact: good eye contact Motor Behavior: steady gait and station and no abnormal motor movements Speech: normal rate/rhythm/volume of speech Affect: euthymic affect and mood congruent with affect "Much better." Thought Process: goal directed thought process and linear/logical thought process Thought Content: reality based without delusions Suicidal Thoughts: denies suicidal thoughts Homicidal Thoughts: denies homicidal thoughts Hallucinations: no auditory hallucinations and no visual hallucinations Cognition: recent memory grossly intact, attention grossly intact and language grossly intact Estimated Intelligence: consistent with education level Insight: good insight Judgement: good judgement Vital Signs (Past 24 Hours) Last Vital Signs Temp 36.6 C 03/29/20 09:35 Pulse 120 H 03/29/20 09:35 Resp 18 03/29/20 09:35 BP 118/82 03/29/20 09:35 Pulse Ox 95 03/29/20 09:35 Principal Diagnosis Bipolar disorder type I, most recent episode mixed DOMINICK OCD Psychiatric Data Patient was hospitalized for 5 days. On admission, escitalopram was held due to concerns that had destabilized mood, and risperidone was started. It was titrated to a total of 2 mg daily, which she tolerated well. Mood symptoms stabilized, she was able to attend and participate in groups and therapy. Sleep improved, and thoughts became more organized. She was diagnosed with bipolar disorder, mixed episode, with psychosis, as she reported feeling depressed, affect was irritable and labile, energy had been elevated with decreased need for sleep, indiscriminate spending, erotomanic fixation, delusions of reference. Psychotic symptoms resolved, and the patient showed increased insight into her thinking. An OCD component was noted, with intrusive thoughts. Hydroxyzine and lorazepam were used as needed in the hospital. She submitted a 72-hour notice requesting to withdrawal from treatment, but agreed to rescind it and stay for ongoing treatment. She had a family meeting with her parents, sister, the social group worker, and myself on 03/28/2020, and they discussed her most recent mood episode. The patient had first noticed symptoms in 01/2020, with acute worsening in 03/2020. They talked about ways to improve communication and how family can help to picking table worker on early signs and symptoms of decompensation. Discharge plans were discussed including recommendations to take some time off work, which the patient was in agreement with. She consistently attended and participated in groups, and performed ADLs independently. She was referred to [facility] for psychiatric care, and rescheduled with her therapist whom she had not seen in several months. Day of Discharge Assessment Staff report the patient attended and participated appropriately in groups, has been interacting appropriately with staff and peers, performing her ADLs independently, and rated her mood an 8/10 in community meeting. She told staff she has been looking forward to discharge and feels she has done everything she can do in the hospital to get better. She has been processing her stressors, including her job and relationships with her family. On my assessment, she states that her mood is significantly improved and "much more stable" than on admission. She reports the frequency and intensity of intrusive thoughts about others potentially being in danger has decreased significantly, and that the thoughts are now fleeting and she has good insight into them as a symptom and not reality. She is able to distract herself and is looking forward to being home and her environment with her plants and pets, with plans to read, watch movies, and relax with family. She would like to take the rest of the month off from work and then consider returning, possibly at reduced work hours. She denies any thoughts of harming herself or others, and is able to review her discharge safety plan and feels comfortable she would be able to utilize it if needed. She denies side effects to medications. Transition of Care Transition Of Care Record: was reviewed with the patient Advance Directives Advance Directives Information Provided: Yes Advance Directives: No Mental Health Advance Directive: No Advance Directives on File: No Living Will: No Power of Publication Director: No Advance Directives Reason:: Declines as Mental Health Visit. Risk Factors Assessment Risk factors were mitigated by admission to the inpatient unit, use of medications to target mood and psychotic symptoms, education about her diagnoses and the recommended treatments, referral for outpatient psychiatry and therapy, family meeting for discharge planning, involvement in groups and therapy, working on healthy coping skills and a discharge safety plan. Patient is demonstrated improvement in mood and psychotic symptoms, has been compliant with medication, engaged in treatment, and willing to follow-up with outpatient treatment. She is performing ADLs independently, and has consistently denied thoughts of harming herself or others. She has not engaged in self-injurious or threatening behavior, and has good support from family. She is requesting discharge, and if she is no longer at acute risk of harm to herself or others, can be managed as an outpatient at this time. Male: No : Yes Do You Have Access To A Gun?: No Health Problems: No Mental Health Diagnoses: Yes Substance Use Disorders: No Previous Attempt: No Family History of Suicide: No Previous Psychiatric Hospitalization: No Hopelessness: No Smoker: No Protective Factors Assessment Baptism Beliefs: No : No Responsible for Young Children: No Employed: Yes ([employer]) Stable Relationships: Yes Supportive Family: Yes Good Rapport with Provider: Yes Absence of Any Risk Factors Above: No Tobacco Cessation at Discharge Tobacco Cessation Medication Prescribed at Discharge: Not Applicable/Non-Smoker Total Time Total Time Spent: Greater Than 30 Minutes Total Time Includes: Examination of the patient, Discharge Planning and Medication Reconciliation Discharge Data Lab Results 03/24/20 03/24/20 03/24/20 01:44 01:44 01:44 WBC 9.44 RBC 4.51 Hgb 13.5 Hct 40.7 MCV 90.2 MCH 29.9 MCHC 33.2 RDW Std Deviation 43.7 RDW Coeff of Nick 13.3 Plt Count 356 MPV 9.5 Immature Gran % (Auto) 0.2 Neut % (Auto) 58.1 Lymph % (Auto) 31.1 [place] % (Auto) 9.2 Eos % (Auto) 1.2 Baso % (Auto) 0.2 Neut # (Auto) 5.48 Lymph # (Auto) 2.94 [place] # (Auto) 0.87 H Eos # (Auto) 0.11 Baso # (Auto) 0.02 Immature Gran # (Auto) 0.02 Sodium 142 Potassium 3.6 Chloride 107 Carbon Dioxide 27 Anion Gap 8.0 BUN 11 Creatinine 0.87 Est Cr Clr Drug Dosing Not Reportable Est GFR ( Amer) 102.2 Est GFR (Non-Af Amer) 88.1 BUN/Creatinine Ratio 12.8 Glucose 118 H Fasting Glucose Calcium 8.7 Total Bilirubin 0.3 AST 22 ALT 45 Alkaline Phosphatase 54 Total Protein 7.7 Albumin 3.4 Globulin 4.3 H Albumin/Globulin Ratio 0.8 L Triglycerides Cholesterol LDL Cholesterol, Calc VLDL Cholesterol, Calc HDL Cholesterol Cholesterol/HDL Ratio TSH 2.570 Urine Color Urine Appearance Urine pH Ur Specific [place] Urine Protein Urine Glucose (UA) Urine Ketones Urine Blood Urine Nitrite Urine Bilirubin Urine Urobilinogen Ur Leukocyte Esterase Urine RBC Urine WBC Ur Epithelial Cells Urine Bacteria Urine Mucus Urine Test Salicylates < 1.7 L Urine Opiates Screen Ur Methadone, Qual Acetaminophen < 2 L Urine Barbiturates Ur Phencyclidine (PCP) U Amphetamin/Meth Scrn MDMA (Ecstasy) Screen U Benzodiazepines Scrn Ur Cocaine Metabolite U Marijuana (THC) Screen Ethyl Alcohol mg/dL 03/24/20 03/24/20 03/24/20 01:44 02:24 02:24 WBC RBC Hgb Hct MCV MCH MCHC RDW Std Deviation RDW Coeff of Nick Plt Count MPV Immature Gran % (Auto) Neut % (Auto) Lymph % (Auto) [place] % (Auto) Eos % (Auto) Baso % (Auto) Neut # (Auto) Lymph # (Auto) [place] # (Auto) Eos # (Auto) Baso # (Auto) Immature Gran # (Auto) Sodium Potassium Chloride Carbon Dioxide Anion Gap BUN Creatinine Est Cr Clr Drug Dosing Est GFR ( Amer) Est GFR (Non-Af Amer) BUN/Creatinine Ratio Glucose Fasting Glucose Calcium Total Bilirubin AST ALT Alkaline Phosphatase Total Protein Albumin Globulin Albumin/Globulin Ratio Triglycerides Cholesterol LDL Cholesterol, Calc VLDL Cholesterol, Calc HDL Cholesterol Cholesterol/HDL Ratio TSH Urine Color Urine Appearance Urine pH Ur Specific [place] Urine Protein Urine Glucose (UA) Urine Ketones Urine Blood Urine Nitrite Urine Bilirubin Urine Urobilinogen Ur Leukocyte Esterase Urine RBC Urine WBC Ur Epithelial Cells Urine Bacteria Urine Mucus Urine Test Negative Salicylates Urine Opiates Screen Neg Ur Methadone, Qual Neg Acetaminophen Urine Barbiturates Neg Ur Phencyclidine (PCP) Neg U Amphetamin/Meth Scrn Neg MDMA (Ecstasy) Screen Neg U Benzodiazepines Scrn Neg Ur Cocaine Metabolite Neg U Marijuana (THC) Screen Neg Ethyl Alcohol mg/dL < 3.0 03/24/20 03/26/20 02:24 07:58 WBC RBC Hgb Hct MCV MCH MCHC RDW Std Deviation RDW Coeff of Nick Plt Count MPV Immature Gran % (Auto) Neut % (Auto) Lymph % (Auto) [place] % (Auto) Eos % (Auto) Baso % (Auto) Neut # (Auto) Lymph # (Auto) [place] # (Auto) Eos # (Auto) Baso # (Auto) Immature Gran # (Auto) Sodium Potassium Chloride Carbon Dioxide Anion Gap BUN Creatinine Est Cr Clr Drug Dosing Est GFR ( Amer) Est GFR (Non-Af Amer) BUN/Creatinine Ratio Glucose Fasting Glucose 96 Calcium Total Bilirubin AST ALT Alkaline Phosphatase Total Protein Albumin Globulin Albumin/Globulin Ratio Triglycerides 113 Cholesterol 241 H LDL Cholesterol, Calc 150 VLDL Cholesterol, Calc 23 HDL Cholesterol 68 Cholesterol/HDL Ratio 4 TSH Urine Color Yellow Urine Appearance Cloudy A Urine pH 6.5 Ur Specific [place] <= 1.005 Urine Protein Negative Urine Glucose (UA) Negative Urine Ketones Negative Urine Blood 3+ H Urine Nitrite Negative Urine Bilirubin Negative Urine Urobilinogen Negative Ur Leukocyte Esterase Negative Urine RBC 10-30 H Urine WBC 10-30 H Ur Epithelial Cells >30 H Urine Bacteria 1+ H Urine Mucus Present A Urine Test Salicylates Urine Opiates Screen Ur Methadone, Qual Acetaminophen Urine Barbiturates Ur Phencyclidine (PCP) U Amphetamin/Meth Scrn MDMA (Ecstasy) Screen U Benzodiazepines Scrn Ur Cocaine Metabolite U Marijuana (THC) Screen Ethyl Alcohol mg/dL Hospital Course (1) Bipolar 1 disorder: 03/24/20 -The patient has been admitted to the [facility] behavioral health unit and is being closely observed. When appropriate, she will be encouraged to participate in group and activity therapies. We will also arrange for family interventions, particularly given the patient's reported closeness with her sister and her parents. -The patient's symptoms are not fully classic for froy, and she reportedly has never had a previous episode of manic-like symptoms. Currently, she number of her symptoms are consistent with a manic episode. She is quite irritable, emotionally labile, reportedly has been working in her office throughout the night on certain nights, has been spending money on apparently useless or unneeded objects, and she has described her thoughts as being "confused." Subjectively, the patient refers to herself as being depressed and what we may be seeing as a "mixed state." -There is also a past history of recurrent episodes of depression that are characterized by depressed mood, receiving and processing supervisor awakening, crying spells, aner matteo, apathy, poor concentration, and psychosocial withdrawal. -We are continuing Lexapro at a lower dose (10 mg a day from 20 mg a day) because the patient, in addition to being irritable, appears depressedand because she insists that Lexapro has helped under similar conditions in the past. However, we will proceed with caution because it is possible that Lexapro, even at lower dosages, may be exacerbating her emotional lability. -We have begun risperidone 0.5 mg twice a day. Material risks and anticipated benefits of risperidone were reviewed with the patient and she indicated understanding. She has some reluctance because of her concern about weight gain, and we assured her that we would monitor for this. (of note after this pt refused Risperdal and ordered Seroquel XR 300mg/hs) 03/25/20 - pt was able to sleep with combination of one dose of Risperdal 0.5mg total of 75mg Vistaril and total of 2mg Ativan slept overnight (Seroquel XR 300mg held due to patient sleeping) Today she still has some loose associations of this provider being like her friend as reasons to immediately trust, and some possibly delusional thoughts about , she seems more subdued, calm and able to participate. Discussed Seroquel XR plan for this evening and rationale and r/b/se/a and patient is accepting. These are all good prognostic signs, however I will delay rendering a full opinion on her 72hour notice as further observation is needed and ongoing improvements in reduction of psychosis, ongoing non-labile mood, consistent sleep are all important for ability to be safe in the community. Further patient needs to establish clear aftercare prior to discharge as well. She seems accepting of this today. Continue Seroquel XR 300mg first dose will be tonight, remove scheduled hs Ativan as I do believe Seroquel will be sedating enough on it's own now that she is not as elevated/agitated as she was 03/24, and she has hs Vistaril prn and Ativan prn if she is not resting. will need to order fasting cholesterol and blood sugar 03/26/20 - pt is grossly worsened overnight despite Seroquel XR 300mg, and Vistaril 50mg and 1mg Ativan with poor sleep, return of fearfulness, and worsening of thoughts of being at risk for delusionally based harms at times even questioning if she is part of this concern, disorganized behavior and thinking as well. Interestingly when presented to her that she appeared somewhat improved yesterday relaying that to Risperdal, and worsened today relaying that to less efficacy of Seroquel she does ask appropriate questions about medication risk and engage in a meaningful way. She is not excited by thought of medication but agrees to return to Risperdal, will place on 0.5mg po bid first dose now, and 0.5mg po bid prn for agitation/psychosis, will stop Vistaril and Seroquel due to polypharmacy and risk they may be contributing to urinary hesitancy, and prefer prn Ativan for agitation/insomnia, but would ask that be reserved if Risperdal has already been given and ineffective, cautiously watching for excessive sedation. Cholesterol is elevated 241, and LDL elevated 150, HDL is high at 68, TG WNL, FBS 96. 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 (IN future could consider Lamictal, or Latuda with caution as possibly more weight neutral options. 03/27 -increase risperidone to 0.5 mg every morning and 1 mg nightly. -Schedule family meeting with parents and sister. Refer for outpatient psychiatric care. -Coordinate care with outpatient therapist. She indicates she has not been in therapy for a few months. 03/28 -increase risperidone to 1 mg twice daily and prn dose to 1 mg every 4 hours, as patient reported limited response to the 0.5 mg dose. Limit Lorazepam 1 mg as needed to twice a day, for use acutely in the hospital, but discontinue prior to discharge, due to disorientation and risk of worsening cognition/disinhibition/addiction/tolerance. -Family meeting with parents and sister today. See social work note. -Discharge planning: Referring for psychiatric care at [facility], needs to reestablish with outpatient therapist. 03/29 -discharged home, with 1 month prescription for risperidone. -Follow-up with therapist tomorrow, and psychiatry at [facility]. -Have discussed recommendations with patient that she transition to a mood stabilizer, such as lithium, for maintenance treatment of bipolar disorder, and at that point risperidone can likely be tapered off. (2) OCD (obsessive compulsive disorder): See above (3) DOMINICK (generalized anxiety disorder): 03/24/20 -Patient describes symptoms of generalized anxiety that date back for many years. These include a sense that things are "just about to go out of control." -The patient also would meet criteria for obsessive-compulsive disorder as part of her anxiety. Her symptoms primarily have to do with a compulsion to repeatedly check objects such as door locks, windows locks, and appliances. These compulsions are linked to obsessive worries that cause extreme anxiety if not gratified. -The patient says that she feels that Lexapro has helped with her anxiety and with her obsessive worrying, checking behaviors. However, she says that Lexapro 10 mg a day works well, while Lexapro 20 mg a day has caused some of the symptoms we are currently observing. 03/25/20 and 03/26/20 - agree with holding lexapro, seroquel may provide some off label benefits for anxiety, and in future consider buspar as less provocative agent for anxiety if not already trialed. (4) Insomnia: 03/24 -The patient acknowledges that she has not been sleeping well. She describes what may be a 2-hour sleep onset delay, followed by regular intermittent insomnia, and then receiving and processing supervisor awakening. She indicates that she has not lost her desire for sleep but, instead, refers to herself as having an inability to sleep. -The patient also indicates that her difficulty sleeping is independent of her mood, and that she has trouble sleeping even when her mood feels normal. -We will begin lorazepam 1 mg at bedtime as a standing dose order for sleep. 03/25/20 - see plan as above with seroquel/HS and prn vistsaril and prn ativan availble 03/26 - see plan to use risperdal and prn ativan as above (stopped seroquel and vistaril) (5) UTI (urinary tract infection): 03/25 - presumptive UTI by elevated WBC in urine, frequency, discomfort with urinating, but not complicated as no f/c/s, no CVA tenderness and WBC counts not elevated in CBC. - pt denies known drug allergies, did have 3 week course of doxycycline ending in February for presumptive Lyme's disease from PCM. will need to monitor for s/sx of yeast infection due to subsequent ABX - start Bactrim DS bid for 3days (per [employer] non-complicated uti guidance) 03/29 -culture results: More than 3 type of organisms present, all high counts makes probable skin eb. No sensitivities done Mental Health & Subst Abuse Tx Psychiatrist Name of Psychiatrist: Freda - Intake Psychiatrist's [facility] [id number] [facility] [place] [id number] Psych[place] Release of Information: Obtained, Reviewed and Signed Therapist Name of Therapist: [facility] (in person appt) Therapist's Date of Therapist Appointment: 03/30/20 Time of Therapist Appointment: 5 pm [facility] [address] [facility] Release of Information: Obtained, Reviewed and Signed Security Project Manager Name of Security Project Manager: . Post Discharge Appointments Primary Care Physician Name Of Family Doctor: [facility] Time of Appointment with PCP: Please follow up as needed Provider Appointment Comment: [address], [address], [place] [address] Primary Care Release of Information: Obtained, Reviewed and Signed Smoking Cessation Counseling Tobacco Cessation Medication Prescribed at Discharge: Not Applicable/Non-Smoker Contact Information Discharge Discharge Address: [address] [place] [id number] Discharge Plan Discharge Items Patient Disposition: Home - Self-Care Reason For Visit: OCD Discharge Diagnosis: Polar disorder type I, most recent episode mixed OCD Activity: Per Instructions section Non-emergency contact: Primary Care Provider, Psychiatrist and Therapist Call non-emergency contact if: you have any medication questions and your symptoms worsen Follow-up/Referrals: Trang Browning CRNP [Primary Care Provider] - Diet: Regular Addtl Attending Provider Instructions: SPECIAL CARE INSTRUCTIONS: 1. Follow through with your scheduled aftercare appointments. If unable to keep an appointment, please call to reschedule. 2. Take your medication only as prescribed. Medication should not be changed or stopped without the approval of your doctor. In the event of worsening symptoms or concerns about side effects, contact your doctor immediately. 3. Utilize new healthy coping skills, anger management skills, and stress management skills learned during your hospitalization. Journal feelings and process them with a support person. Identify stressors or situations that may result in relapse, deterioration or inappropriate behaviors and develop a plan to deal with those issues. 4. If your coping skills are ineffective and you are in crisis, contact your outpatient providers for direction. If unable to reach your providers, please call the CAN HELP LINE AT or go to the closest Emergency Room. 5. Avoid alcohol and un-prescribed drugs. 6. You have been provided with the Mental Health Advance Directives Pamphlet for your review. AFTERCARE APPOINTMENTS: * Please call your insurance company prior to your scheduled appointment to confirm your aftercare providers are covered. Take your insurance information to your appointments. WHO TO CALL AND WHEN: Medical Emergencies: For questions or emergencies related to your hospital stay, please contact the Inpatient Behavioral Health Unit at [phone]. A therapeutic recreation director is on-call 07/04 for the Behavioral Health Unit for emergencies At any time you feel your situation is an emergency, you may also call 911 immediately. Your Doctors Instructions noted above were prepared by provider Analy Bhakta MD. Pending Studies at Discharge: No Stand-Alone Forms: My [facility], Smoking Cessation, Suicide Prevention Resources Medications and DC Order Prescriptions: New risperidone 1 mg Tablet 1 mg PO BID Qty: 60 RF: 0 Continued norgestimate-ethinyl estradiol [Tri Femynor] 0.18/0.215/0.25 mg-35 mcg (28) tablet 1 tab PO DAILY RF: 0 Discontinued escitalopram oxalate 10 mg tablet 20 mg PO DAILY RF: 0 Discharge Orders: Discharge Order (Routine); Ordered 03/29/20 Ordered By: Analy Bhakta Admission Data Admit Date/Time: 03/24/20 04:49 Attending Provider: Maurice Neal Admit Provider: Analy Bhakta Primary Care Provider: Trang Browning Other Interventions: Discharge Summary Assessment (RN) Last Done: 03/29/20 09:35 PSY Interdisciplinary Discharge Planning Last Done: 03/29/20 09:34 Coding Level of Care Code 28722 D/C day mgmt > 30 min Diagnoses Bipolar 1 disorder F31.9 OCD (obsessive compulsive disorder) F42.9 DOMINICK (generalized anxiety disorder) F41.1 Insomnia G47.00 UTI (urinary tract infection) N39.0
== END 2020-03-29 10:27 | disposition home or self-care (01) | DRG 885 ==
LOC: ED 00:27 → 3S 04:49